=== PATIENT | female | born 1930 | race Caucasian/White ===

== ENCOUNTER 2016-08-30 12:58 | Emergency (ER) | payer OTHER ==
[~2016-08-30] VITALS: Ht 160 cm; Wt 52.0 kg
[~2016-08-30 12:58] MED LIST: ASCO500C4 PO; ASPEC81 PO; ATV5 PO; CHOL100010 PO; CRG25 PO; CTP1 PO; LOSA100T65 PO; LPT20 PO; LSX20 PO; MULT-506 PO; OMEG10007 PO; SPR25 PO; [UNRECOGNIZED DRUG - CODE] PO
[2016-08-30 13:01] VITALS: TEMP 36.3; Ht 160 cm; Wt 52.0 kg
[2016-08-30 13:48] VITALS: O2SAT 97
[2016-08-30 13:58] LABS: HEMATOCRIT 38.5 % (37-47); MEAN CELL VOLUME 87.9 fL (80-100); MEAN CORPUSCULAR HEMOGLOBIN 31.5 pg (25-34); MEAN CORPUSCULAR HGB CONC 35.8 g/dl (32-36); MEAN PLATELET VOLUME 11.1 fL (7.4-10.4); PLATELET COUNT 278 K/uL (130-400); RED BLOOD COUNT 4.38 M/uL (4.2-5.4); WHITE BLOOD COUNT 8.76 K/uL (4.8-10.8)
--- NOTE | 2016-08-30 13:58 | EMERGENCY ROOM VISIT NOTE ---
History Report prepared by Arslan: Calvin Garza Under the Supervision of: Dr. Yvon Christiansen M.D. First contact with patient: 13:35 Chief Complaint: REFERRED BY DOCTOR Stated Complaint: HTN History of Present Illness The patient is a 85 year old female who presents to the Emergency Room with complaints of worsening hypertension that occurred today. Her blood pressure is currently 194/135. She was referred by her face worker to come to the ED. 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 She states that they think was due to her increased blood pressure. It is currently attached, but she is noticing more trouble reading. She also had two cataract surgeries. She denies any abdominal pain, leg pain, fever, chills, diarrhea, melena, hematochezia, or urinary symptoms. She is currently taking Clonidine, Losartan, Catapres, Lipitor, Coreg, and an anxiety medication. She had a prior lumpectomy. She is feeling some heart palpations. Source of History: patient Onset: today Position: other (global) Symptom Intensity: 194/135 Quality: other (hypertension) Timing: worsening Associated Symptoms: No abdominal pain, No chills, No diarrhea, No fevers, No hematochezia, No melena, No urinary symptoms Note: She denies any leg pain. She is experiencing some heart palpitations. Review of Systems All systems have been listed, reviewed, and are negative other than those previously mentioned. Please see Additional Medical History Sheet. Past Medical & Surgical Medical Problems: (1) Allergic rhinitis (2) Breast cancer (3) Carotid bruit (4) CKD (chronic kidney disease), stage III (5) Detached retina (6) Dyslipidemia (7) History of breast cancer (8) History of melanoma (9) Hypertension (10) Hypertensive urgency (11) Osteoporosis Surgical Problems: (1) Status post cataract extraction (2) Status post partial mastectomy of right breast Family History Brain tumor FATHER Pancreatic cancer MOTHER Social History Smoking Status: Never Smoker Alcohol Use: none Marital Status: Housing Status: lives alone Occupation Status: employed Current/Historical Medications Scheduled Ascorbic Acid (Vitamin C Cr), 500 MG PO DAILY Aspirin (Aspirin EC Low Dose), 81 MG PO QAM Atorvastatin (Atorvastatin Calcium), 20 MG PO QPM Calcium Carbonate (Chewable Calcium), 500 MG PO BID Carvedilol (Carvedilol), 25 MG PO BID Cholecalciferol (Vitamin D-1000), 1,000 UNITS PO DAILY Clonidine Hcl (Catapres), 0.5 TAB PO UD Fish Oil ([place]-3), 1 CAP PO BID Furosemide (Furosemide), 20 MG PO QAM Losartan Potassium (Cozaar), 100 MG PO DAILY Multivitamin (Multivitamin), 1 TABLET PO DAILY Spironolactone (Spironolactone), 12.5 MG PO QAM Scheduled PRN Lorazepam (Lorazepam), 0.5 MG PO HS PRN for Anxiety Allergies Coded Allergies: Sulfa Antibiotics (Verified Allergy, Intermediate, rash, 07/14/16) Codeine (Verified Adverse Reaction, Intermediate, N/V, 07/14/16) Physical Exam Vital Signs Date Time Temp Pulse Resp B/P Pulse Ox O2 Delivery O2 Flow Rate FiO2 08/30/16 14:47 63 18 158/97 98 Room Air 08/30/16 14:00 64 16 170/75 98 Room Air 08/30/16 13:48 97 Room Air 08/30/16 13:47 82 19 167/84 98 Room Air 08/30/16 13:30 63 17 169/79 99 Room Air 08/30/16 13:23 66 08/30/16 13:01 36.3 90 18 189/80 90 Room Air Physical Exam GENERAL: Patient awake, alert, oriented x 3. Patient follows commands. Patient does not appear toxic. Patient is adequately hydrated and well- nourished. SKIN: No erythema, pallor, cyanosis or rash HEENT: Normal head, her right pupil is slightly enlarged and irregular, left pupil is constricted but reactive, Funduscopic exam shows in right eye irregular appearing retina consistent with past retinal detachment and surgery. Left pupil constricted with limited visualization of retina. Oral cavity and posterior pharynx appear normal. Neck: Without adenopathy, no neck vein distention. LUNGS: Clear to auscultation. No wheezes, no rales, no rhonchi. HEART: No murmurs. No gallops. No rubs. Irregularly irregular rhythm. ABDOMEN: No masses, no rebound, no hepatomegaly or splenomegaly. EXTREMITIES: No signs of trauma. No pedal or pretibial edema. No calf or thigh tenderness. NEUROLOGIC: Cranial nerves II-XII within normal limits. No gross motor sensory function deficits. Medical Decision & Procedures ER Provider Diagnostic Interpretation: X ray results are stated below per my interpretation and the radiologist's interpretation. CHEST 2 VIEWS ROUTINE CLINICAL HISTORY: Hypertension COMPARISON STUDY: 07/14/2016 FINDINGS: The cardiac and mediastinal contours remain stable. There is no focal pulmonary consolidation. There is a trace right pleural effusion. There is subtle subpleural right lung septal edema. IMPRESSION: 1. No evidence of focal pulmonary consolidation 2. Subtle subpleural right lung septal edema 3. Trace right pleural effusion Electronically signed by: Cyril Duran M.D. 08/30/2016 2:36 PM Dictated Date/Time: 08/30/2016 2:33 PM Laboratory Results 08/30/16 13:30 Test 08/30/16 13:30 Red Blood Count 4.38 M/uL (4.2-5.4) Mean Corpuscular Volume 87.9 fL (80-100) Mean Corpuscular Hemoglobin 31.5 pg (25-34) Mean Corpuscular Hemoglobin Concent 35.8 g/dl (32-36) RDW Standard Deviation 45.9 fL (36.4-46.3) RDW Coefficient of Variation 14.4 % (11.5-14.5) Mean Platelet Volume 11.1 fL (7.4-10.4) Prothrombin Time 11.0 SECONDS (9.0-12.0) Prothromb Time International Ratio 1.0 (0.9-1.1) Activated Partial Thromboplast Time 25.4 SECONDS (21.0-31.0) Partial Thromboplastin Ratio 1.0 Troponin I < 0.015 ng/ml (0-0.045) Laboratory results as stated above per my review. Medications Administered Medications (Trade) Dose Ordered Sig/Galdino Route Start Time Stop Time Status Last Admin Dose Admin Clonidine HCl (Catapres Tab) 0.05 mg NOW ONCE PO 08/30/16 14:00 08/30/16 14:01 DC 08/30/16 14:08 0.05 MG ECG Indication: palpitations Rate (beats per minute): 63 Rhythm: sinus rhythm Findings: ST depression (1, 2, AVF, and V6), no ectopy, other (Left ventricular hypertrophy) ED Course 1335: Past medical records reviewed. The patient was evaluated in room A12. A complete history and physical examination was performed. 1400: Clonidine HCl 0.05 mg PO 1506: I reassessed the patient at this time. She is feeling better. Her blood pressure is now 158/63. 1530: Upon reevaluation, the patient appeared to have improvement of her symptoms. I discussed today's findings with her. She verbalized agreement of the treatment plan. She was discharged home. Medical Decision Nurses notes reviewed. Medical history sheet reviewed. Differential diagnosis includes but is not limited to: Hypertension out of control, metabolic disorder , anxiety, and retinal detachment. The patient's exam is unremarkable. Multiple labs and EKG were performed. Please see above. The patient does have an irregular heartbeat which is chronic. Blood pressure came down with 0.05 mg of clonidine. Patient is to continue her current medications as prescribed. I reassured her. Some of the problem is related to underlying anxiety. Impression Primary Impression: Hypertension Additional Impressions: Anxiety History of retinal detachment Scribe Attestation The scribe's documentation has been prepared under my direction and personally reviewed by me in its entirety. I confirm that the note above accurately reflects all work, treatment, procedures, and medical decision making performed by me. Departure Information Dispostion Home / Self-Care Referrals Lizeth Tariq D.O. (PCP) Forms HOME CARE DOCUMENTATION FORM, IMPORTANT VISIT INFORMATION, WORK / SCHOOL INSTRUCTIONS Patient Instructions My [facility] Additional Instructions Continue all of your current medications as prescribed. Follow-up with your family physician within the next 10 days. Problem Qualifiers Primary Impression: Hypertension Hypertension type: essential hypertension Qualified Codes: I10 - Essential ( primary) hypertension
[2016-08-30] MEDS ORDERED: CLONIDINE HCL 0.1 MG TAB PO ONE (14:00)
[2016-08-30] MEDS ORDERED: CTP/1 PO (14:37)
[2016-08-30] MEDS ORDERED: CHOL100040 PO (14:37)
--- NOTE | 2016-08-30 14:37 | DIAGNOSTIC IMAGING REPORT ---
CHEST 2 VIEWS ROUTINE CLINICAL HISTORY: Hypertension COMPARISON STUDY: 07/14/2016 FINDINGS: The cardiac and mediastinal contours remain stable. There is no focal pulmonary consolidation. There is a trace right pleural effusion. There is subtle subpleural right lung septal edema. IMPRESSION: 1. No evidence of focal pulmonary consolidation 2. Subtle subpleural right lung septal edema 3. Trace right pleural effusion Electronically signed by: Cyril Duran M.D. 08/30/2016 2:36 PM Dictated Date/Time: 08/30/2016 2:33 PM
[2016-08-30 14:47] VITALS: BP 158/97; PULSE 63; O2SAT 98
[2016-10-02] MEDS ORDERED: CALC500C70 PO (13:51)
[2016-10-02] MEDS ORDERED: LORA-741 PO (13:51)
[2016-10-02] MEDS ORDERED: ATOR-54 PO (13:53)
[2016-10-02] MEDS ORDERED: PROB1TAB16 PO (13:55)
[2016-10-02] MEDS ORDERED: FIBER PO (13:55)
[2017-02-24] MEDS ORDERED: CTP1 PO (11:46)
[2017-02-24] MEDS ORDERED: PLN25 PO (11:46)
[2017-02-24] MEDS ORDERED: LSX20 PO (11:47)
== END 2016-08-30 15:15 | disposition home or self-care (01) ==
LOC: C.EDB 12:59 → C.EDA 15:15
DX: I12.9 Hypertensive chronic kidney disease with stage 1 through stage 4 chronic kidney disease, or unspecified chronic kidney disease (principal); F41.9 Anxiety disorder, unspecified; N18.3 Chronic kidney disease, stage 3 (moderate); Z98.890 Other specified postprocedural states; E78.5 Hyperlipidemia, unspecified; Z85.3 Personal history of malignant neoplasm of breast; Z85.820 Personal history of malignant melanoma of skin; Z98.49 Cataract extraction status, unspecified eye; Z90.11 Acquired absence of right breast and nipple; Z88.2 Allergy status to sulfonamides; Z88.5 Allergy status to narcotic agent; Z80.0 Family history of malignant neoplasm of digestive organs

== ENCOUNTER → 2016-10-02 | Outpatient (CLI) | payer OTHER ==
[~2016-10-02] MED LIST changes: +ATOR-54 PO; +CALC500C70 PO; -CHOL100010 PO; +CHOL100040 PO; +CTP/1 PO; +FIBER PO; +LORA-741 PO; +PLN25 PO; +PROB1TAB16 PO
[2016-10-02 13:19] VITALS: BP 155/62; PULSE 62; TEMP 36.8; O2SAT 95
--- NOTE | 2016-10-02 16:03 | Radiation Oncology Follow-Up ---
Radiation Oncology Follow-Up Date of Visit Oct 02, 2016. 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 She has noted no masses or tenderness and no change of the axilla. She is up-to-date on mammography. She had a mammogram 06/24/2016. There is no mammographic evidence of malignancy. A one-year screening mammogram was recommended. As was given a BI-RADS Category 1. She had been on Arimidex and this was discontinued after her recent hospitalization. She was hospitalized for palpitations. She also completed a 24-hour Holter monitor yesterday and is awaiting the results. She continues to have the palpitations. There is no chest pain or pressure associated. Medications have been given and adjusted while hospitalized. Allergies Coded Allergies: Sulfa Antibiotics (Verified Allergy, Intermediate, rash, 07/14/16) Codeine (Verified Adverse Reaction, Intermediate, N/V, 07/14/16) Home Medications Scheduled Ascorbic Acid (Vitamin C Cr), 500 MG PO DAILY Aspirin (Aspirin EC Low Dose), 81 MG PO QAM Atorvastatin (Lipitor), 1 TAB PO HS Calcium/Vitamin D ([place] 500 Plus D), 1 TAB PO BID Carvedilol (Carvedilol), 25 MG PO BID Cholecalciferol (Vitamin D-1000), 1,000 UNITS PO DAILY Clonidine Hcl (Catapres), 0.5 TAB PO UD Fiber Laxative (Fiber Laxative), 1 CAP PO DAILYBB Fish Oil ([place]-3), 1 CAP PO BID Furosemide (Furosemide), 20 MG PO QAM Losartan Potassium (Cozaar), 100 MG PO DAILY Multivitamin (Multivitamin), 1 TABLET PO DAILY Probiotic Product (Probiotic), 1 TAB PO DAILYBL Spironolactone (Spironolactone), 12.5 MG PO QAM Scheduled PRN Lorazepam (Ativan), 0.5 MG PO HS PRN for Insomnia Review of Systems Gastrointestinal: Symptoms: WNL Oral: Symptoms: No Problems Respiratory: Symptoms: SOB With Exertion Urinary: Symptoms: WNL Skin: Symptoms: No Problems Breast: Right Upper Arm Measurement: 23.5 Right Mid Arm Measurement: 18.5 Right Wrist Measurement: 13.8 Left Upper Arm Measurement: 22.5 Left Mid Arm Measurement: 18.7 Left Wrist Measurement: 13.6 Arm Dominence: Right Patient Cosmetic Evaluation: Excellent Staff Cosmetic Evalaluation: Excellent Physical Exam Vital Signs Date Time Temp Pulse Resp B/P Pulse Ox O2 Delivery O2 Flow Rate FiO2 10/02/16 13:19 36.8 62 16 155/62 95 Pain: Side: Bilateral Patient Pain Scale: 0 - 10 Initial Pain Intensity: 0.0 Fatigue: None General Appearance: no apparent distress Eyes: normal inspection, EOMI ENT: normal ENT inspection, hearing grossly normal Neck: no adenopathy, thyroid normal Respiratory/Chest: lungs clear, no respiratory distress, no accessory muscle use Breast: Breast examination reveals absence of nipple on the right. There are no masses or tenderness no axillary adenopathy. Well-healed incisions. There is no telangiectasia. She has no skin retractions. Using the [place] score cosmesis she has a good outcome. The left breast shows no masses or tenderness and no axillary adenopathy. Cardiovascular: regular rate, rhythm, no gallop, no murmur, + extra beats Abdomen: non tender, soft Extremities: no pedal edema Neurologic/Psychiatric: no motor/sensory deficits, alert, normal mood/affect Skin: warm/dry Lymphatic: no adenopathy Laboratory Studies Test 07/09/16 22:20 07/10/16 00:42 07/10/16 06:40 07/14/16 21:40 Total Bilirubin 0.4 mg/dl (0.2-1) 0.5 mg/dl (0.2-1) Direct Bilirubin 0.1 mg/dl (0-0.2) 0.1 mg/dl (0-0.2) Aspartate Amino Transferase (AST) 19 U/L (15-37) 17 U/L (15-37) Alanine Aminotransferase (ALT) 26 U/L (12-78) 20 U/L (12-78) Alkaline Phosphatase 58 U/L (45-117) 60 U/L (45-117) Total Creatine Kinase 53 U/L (26-192) 38 U/L (26-192) Creatine Kinase MB 0.7 ng/ml (0.5-3.6) < 0.5 ng/ml (0.5-3.6) Creatine Kinase MB Ratio 1.3 (0-3.0) (0-3.0) Total Protein 7.3 gm/dl (6.4-8.2) 7.6 gm/dl (6.4-8.2) Albumin 3.6 gm/dl (3.4-5.0) 3.6 gm/dl (3.4-5.0) Lipase 254 U/L (73-393) 337 U/L (73-393) Thyroid Stimulating Hormone (TSH) 4.240 uIu/ml (0.300-4.500) Free Thyroxine 1.21 ng/dl (0.80-1.60) Urine Color YELLOW Urine Appearance CLEAR (CLEAR) Urine pH 7.5 (4.5-7.5) Urine Specific [place] 1.006 (1.000-1.030) Urine Protein NEG (NEG) Urine Glucose (UA) NEG (NEG) Urine Ketones NEG (NEG) Urine Occult Blood NEG (NEG) Urine Nitrite NEG (NEG) Urine Bilirubin NEG (NEG) Urine Urobilinogen NEG (NEG) Urine Leukocyte Esterase NEG (NEG) Triglycerides Level 64 mg/dl (0-150) Cholesterol Level 181 mg/dl (0-200) HDL Cholesterol 70 mg/dl LDL Cholesterol, Calculated 98 mg/dl VLDL Cholesterol, Calculated 13 mg/dl Cholesterol/HDL Ratio 2.6 PTT 25.2 SECONDS (21.0-31.0) Partial Thromboplastin Ratio 1.0 D-Dimer 1700 ug/L FEU (0-500) Magnesium Level 2.1 mg/dl (1.8-2.4) Test 07/15/16 05:10 07/17/16 05:00 08/30/16 13:30 Immature Granulocyte % (Auto) 0.1 % 0.1 % White Blood Count 9.52 K/uL (4.8-10.8) 9.43 K/uL (4.8-10.8) 8.76 K/uL (4.8-10.8) Red Blood Count 4.26 M/uL (4.2-5.4) 4.06 M/uL (4.2-5.4) 4.38 M/uL (4.2-5.4) Hemoglobin 13.6 g/dL (12.0-16.0) 12.9 g/dL (12.0-16.0) 13.8 g/dL (12.0-16.0) Hematocrit 36.3 % (37-47) 35.2 % (37-47) 38.5 % (37-47) Mean Corpuscular Volume 85.2 fL (80-100) 86.7 fL (80-100) 87.9 fL (80-100) Mean Corpuscular Hemoglobin 31.9 pg (25-34) 31.8 pg (25-34) 31.5 pg (25-34) Mean Corpuscular Hemoglobin Concent 37.5 g/dl (32-36) 36.6 g/dl (32-36) 35.8 g/dl (32-36) Platelet Count 289 K/uL (130-400) 277 K/uL (130-400) 278 K/uL (130-400) Mean Platelet Volume 11.1 fL (7.4-10.4) 11.1 fL (7.4-10.4) 11.1 fL (7.4-10.4) Neutrophils (%) (Auto) 51.3 % 54.7 % Lymphocytes (%) (Auto) 32.2 % 32.4 % Monocytes (%) (Auto) 13.2 % 9.2 % Eosinophils (%) (Auto) 2.8 % 3.2 % Basophils (%) (Auto) 0.4 % 0.4 % Neutrophils # (Auto) 4.87 K/uL (1.4-6.5) 5.15 K/uL (1.4-6.5) Lymphocytes # (Auto) 3.07 K/uL (1.2-3.4) 3.06 K/uL (1.2-3.4) Monocytes # (Auto) 1.26 K/uL (0.11-0.59) 0.87 K/uL (0.11-0.59) Eosinophils # (Auto) 0.27 K/uL (0-0.5) 0.30 K/uL (0-0.5) Basophils # (Auto) 0.04 K/uL (0-0.2) 0.04 K/uL (0-0.2) Immature Granulocyte # (Auto) 0.01 K/uL (0.00-0.02) 0.01 K/uL (0.00-0.02) Prothrombin Time 10.7 SECONDS (9.0-12.0) 11.0 SECONDS (9.0-12.0) Prothrombin Time INR 1.0 (0.9-1.1) 1.0 (0.9-1.1) Sodium Level 143 mmol/L (136-145) 143 mmol/L (136-145) Potassium Level 3.5 mmol/L (3.5-5.1) 3.9 mmol/L (3.5-5.1) Chloride Level 105 mmol/L (98-107) 108 mmol/L (98-107) Carbon Dioxide Level 28 mmol/L (21-32) 25 mmol/L (21-32) Anion Gap 10.0 mmol/L (3-11) 10.0 mmol/L (3-11) Blood Urea Nitrogen 18 mg/dl (7-18) 18 mg/dl (7-18) Creatinine 0.91 mg/dl (0.60-1.20) 0.89 mg/dl (0.60-1.20) Est Creatinine Clear Calc Drug Dose 35.1 ml/min 37.2 ml/min Estimated GFR () 67.1 69.0 Estimated GFR (Non- 57.9 59.5 BUN/Creatinine Ratio 20.0 (10-20) 20.4 (10-20) Random Glucose 96 mg/dl (70-99) 88 mg/dl (70-99) Calcium Level 9.0 mg/dl (8.5-10.1) 8.7 mg/dl (8.5-10.1) Troponin I 0.024 ng/ml (0-0.045) < 0.015 ng/ml (0-0.045) RDW Standard Deviation 43.9 fL (36.4-46.3) 45.9 fL (36.4-46.3) RDW Coefficient of Variation 14.0 % (11.5-14.5) 14.4 % (11.5-14.5) Magnesium Level 2.3 mg/dl (1.8-2.4) PTT 25.4 SECONDS (21.0-31.0) Partial Thromboplastin Ratio 1.0 Additional Studies Mammography as reviewed above. Assessment & Plan Plan: Continue annual mammography continue regular follow-up with medical oncology and Dr. Javier. We discussed the studies that she had while hospitalized. 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 She'll be getting the results of her Holter monitor from Dr. Javier. A follow-up appointment with our office was not given. She may call if she has any questions or concerns we' ll be happy to see her. Total Time In Follow-Up I spent 25 minutes speaking to the patient performing examination. I spent 15 minutes reviewing information completing this note. Copy To Sonal Yates CRNP; Scott Javier M.D. Problem Qualifiers (1) Breast cancer: Breast location: central portion of breast Patient sex: female Laterality: right Qualified Codes: C50.111 - Malignant neoplasm of central portion of right female breast
== END | disposition home or self-care (01) ==
LOC: C.ONC 13:06
PROVIDERS: ATTEND Physician Assistant Medical
DX: Z08 Encounter for follow-up examination after completed treatment for malignant neoplasm (principal); Z92.3 Personal history of irradiation; Z85.3 Personal history of malignant neoplasm of breast

== ENCOUNTER 2016-11-18 06:32 | Observation (INO) | payer OTHER ==
[~2016-11-18] VITALS: Ht 160 cm; Wt 51.9 kg
[~2016-11-18 06:32] MED LIST changes: -ATV5 PO; -CTP1 PO; -LPT20 PO; -PLN25 PO; -[UNRECOGNIZED DRUG - CODE] PO
[2016-11-18 07:26] VITALS: BP 170/80; PULSE 80; TEMP 36.5; O2SAT 98
--- NOTE | 2016-11-18 08:21 | History & Physical Bridge Note ---
H&P Re-Evaluation Bridge Note: I have examined the patient, reviewed the History & Physical and in the interval since the performance of the History & Physical I have noted the following changes of clinical significance: No changes noted
--- NOTE | 2016-11-18 08:21 | Procedure Note ---
Pre-Mod Sedation Assessment General Date of Moderate Sedation: Nov 18, 2016. Vital Signs: Vital Signs Past 12 Hours Date Time Temp Pulse Resp B/P Pulse Ox O2 Delivery O2 Flow Rate FiO2 11/18/16 07:26 36.5 80 16 170/80 98 Room Air Review Cardiovascular: regular rate, rhythm, no edema, + extra beats Abdomen: soft Lungs: lungs clear Airway Class: II Pre-Sedation Airway Assessment Oral Cavity: WNL Short Thick Neck: No Hx of Sleep Apnea: No Smoking Status: Never Smoker Mallampati Classification: Class II ASA Classification: Class II Procedure Planning Contraindications-for Mod Sed: None Yes Notes The planned sedation has been discussed with the patient and consent obtained. I have identified the patient, determined the appropriateness of sedation and have assessed the patient immediately prior to the procedure. All medicine(s) and interventions are by my order.
[2016-11-18] MEDS ORDERED: MIDAZOLAM HCL 5 MG/ML 1 ML VIAL ONE (08:34)
[2016-11-18] MEDS ORDERED: FENTANYL CITRATE INJ 50 MCG/1 ML 2 ML VIAL ONE (08:34)
[2016-11-18] MEDS ORDERED: HEPARIN SOD (PORCINE) 1000 UNIT/ML 10 ML VIAL ONE (08:54)
[2016-11-18] MEDS ORDERED: ISOPROTERENOL 200 MCG / 50ML D5W IV ONE ×2 (09:04→10:12)
[2016-11-18] MEDS ORDERED: HEPARIN 25000 UNIT/500 ML D5W ONE (09:31)
[2016-11-18] MEDS ORDERED: LORAZEPAM 0.5 MG TAB PO PRN (11:45)
[2016-11-18] MEDS ORDERED: ACETAMINOPHEN 325 MG TAB PO PRN (11:45)
--- NOTE | 2016-11-18 11:53 | [facility] Post Operative Brief Note ---
Immediate Operative Summary Operative Date Nov 18, 2016. Pre-Operative Diagnosis pvc frequent, nicm Post-Operative Diagnosis nicm Procedure(s) Performed 3d mapping of pvc of rvot and lvot, pvc ablation, eps, isoprel infusion Surgeon stevie morin Bullet Lubricating Machine Operator Surgeon(s) none Estimated Blood Loss <5cc Findings see official report Fluids (cc crystalloids) 500cc Specimens none Drains none Anesthesia 2mg versed and 25mcg fentanyl Complication(s) None Disposition slab puller holding
--- NOTE | 2016-11-18 11:55 | Discharge Instructions ---
Discharge Instructions Date of Service Nov 18, 2016. Admission Reason for Admission: Frequent Pvc's * To Do* Discharge Discharge Diagnosis / Problem: PVC Discharge Goals Goal(s): Improve function Activity Recommendations Activity Limitations: as noted below (no heavy lifting or squating for 1 week) May Resume Sexual Activity: when tolerated Shower/Bathe: tomorrow Driving or Machine Use: resume 1 day after discharge . Instructions / Follow-Up Instructions / Follow-Up ACTIVITY RECOMMENDATIONS: It is common to feel weak and fatigue for a few days. * Do not drive or operate any motorized equipment for the next 1 day. * Limit stair usage (2 or 3 trips a day only) for the next three days. * Do not lift anything heavier than 10 pounds for the next 7 days. * Do not engage in vigorous exercise or any sports for the next five days. * You may shower the day after your procedure, but do not immerse the area for three days. Cleanse the site gently with soap and water. SPECIAL CARE INSTRUCTIONS: * You may replace the pressure dressing or band-aid the morning after the procedure. * After your procedure, it is normal to have a small bruise or small lump at the site. Examine your site daily for any change in the bruise or lump, redness, swelling, drainage or numbness. Notify your doctor if any change. BLEEDING: * If there is a small amount of bleeding at the site, lie down and apply firm pressure with a clean cloth for ten minutes. When the bleeding stops, lie quietly keeping the procedure limb straight for six hours. Notify your doctor as soon as possible. * If the bleeding does not stop after ten minutes or if there is a large amount of bleeding or spurting, call 911 immediately. Continue to lie down and hold firm pressure until help arrives. SKIN IRRITATION: * You may experience some redness and/or swelling in the area where radiation was administered. If any skin irritation occurs, please contact your family physician. FOLLOW UP VISIT: Keep any scheduled doctor appointments. Current Hospital Diet Patient's current hospital diet: Regular Diet Discharge Diet Recommended Diet: AHA Diet (Heart Healthy) Procedures Procedures Performed: 3d mapping of pvc of rvot and lvot, pvc ablation, eps, isoprel infusion Pending Studies Studies pending at discharge: no Medical Emergencies . Who to Call and When: Medical Emergencies: If at any time you feel your situation is an emergency, please call 911 immediately. . Non-Emergent Contact Non-Emergency issues call your: Industrial Robotics Mechanic . . "Provider Documentation" section prepared by Kristina Burgess. VTE Core Measure Inpt VTE Proph given/why not?: Treatment not indicated
--- NOTE | 2016-11-18 11:57 | Procedure Note ---
Post-Mod Sedation Assessment General Date of Moderate Sedation Nov 18, 2016. Vital Signs: Vital Signs Past 12 Hours Date Time Temp Pulse Resp B/P Pulse Ox O2 Delivery O2 Flow Rate FiO2 11/18/16 11:40 Room Air 11/18/16 11:35 Room Air 11/18/16 11:30 78 16 193/89 98 Room Air 11/18/16 07:26 36.5 80 16 170/80 98 Room Air Review - Discharge Criteria Vital Signs Stable: Yes Alert/Oriented/Conversant: Yes Returned to Baseline Mental St: Yes Nausea Absent/Minimal: Yes Pain/Discomfort/Absent/Minimal: Yes Normal/Baseline Respirations: Yes Active Bleeding?: No Pt Received D/C Instructions: N/A Prescriptions Given: None Specific Proced. D/C Criteria Distal Pulses Present (Cardiac: Yes Groin site assessed-Card Cath: Yes Voided Prior To Discharge: Yes Discharged Patients Adult Escort/Transportation: N/A
[2016-11-18] MEDS ORDERED: NURSING VERBAL MED ORDER ONE ×2 (12:00→12:45)
--- NOTE | 2016-11-18 12:01 | Discharge Summary ---
Discharge Summary Date of Service Nov 18, 2016. Discharge Summary Admission Date: 11/18/2016 Discharge Date: Nov 19, 2016 Discharge Disposition: Home Principal Diagnosis: PVCs Secondary Diagnoses/Problems: NICM EF 40-49% HTN Chronic systolic HF, NYHA class II HLD CKD stage III Procedures: EPS, isoprel infusion, 3d mapping of PVCs in RVOT and LVOT, PVC ablation Medication Reconciliation Continued Medications: Ascorbic Acid (Vitamin C Cr) 500 Mg Cap 500 MG PO DAILY Aspirin (Aspirin EC Low Dose) 81 Mg Ectab 81 MG PO QAM, #30 2 Refills Atorvastatin (Lipitor) 20 Mg Tab 1 TAB PO HS for 90 Days, TAB 1 Refill Calcium/Vitamin D (Os-Phan 500 Plus D) Tab 1 TAB PO BID, TAB Carvedilol (Carvedilol) 25 Mg Tab 25 MG PO BID for 30 Days, #60 TAB Cholecalciferol (Vitamin D-1000) 1,000 Unit Tab 1000 UNITS PO DAILY Clonidine Hcl (Catapres) 0.1 Mg Tab 0.5 TAB PO UD, TAB with evening meal Fiber Laxative (Fiber Laxative) Ea 1 CAP PO DAILYBB Fish Oil ([place]-3) 1 Ea Cap 1 CAP PO BID 1000 MG CAPS Furosemide (Furosemide) 20 Mg Tab 20 MG PO QAM for 30 Days, #30 TAB Lorazepam (Ativan) 0.5 Mg Tab 0.5 MG PO HS PRN for Insomnia, TAB Losartan Potassium (Cozaar) 100 Mg Tab 100 MG PO DAILY, TAB Multivitamin (Multivitamin) Tab 1 TABLET PO DAILY Probiotic Product (Probiotic) 1 Tab Tab 1 TAB PO DAILYBL Spironolactone (Spironolactone) 25 Mg Tab 12.5 MG PO QAM for 30 Days, #15 TAB Admission Information Physical Exam (per Admitting): aaox3, nad supple, no jvd nrl s1/s2, +PVCs, no murmur cta b/l no w/r/r soft, nt/nd no edema b/l no focal deficits Hospital Course Pt admitted for elective PVC ablation due to frequent PVCs and declining of her LV EF (NICM). Pt underwent procedure without any complications, monitored overnight and discharged home in stable condition following morning. Total time spent on discharge = This includes examination of the patient, discharge planning, medication reconciliation, and communication with other providers. Discharge Instructions ACTIVITY RECOMMENDATIONS: It is common to feel weak and fatigue for a few days. * Do not drive or operate any motorized equipment for the next 1 da.. * Limit stair usage (2 or 3 trips a day only) for the next three days. * Do not lift anything heavier than 10 pounds for the next three days. * Do not engage in vigorous exercise or any sports for the next five days. * You may shower the day after your procedure, but do not immerse the area for three days. Cleanse the site gently with soap and water. SPECIAL CARE INSTRUCTIONS: * You may replace the pressure dressing or band-aid the morning after the procedure. * After your procedure, it is normal to have a small bruise or small lump at the site. Examine your site daily for any change in the bruise or lump, redness, swelling, drainage or numbness. Notify your doctor if any change. BLEEDING: * If there is a small amount of bleeding at the site, lie down and apply firm pressure with a clean cloth for ten minutes. When the bleeding stops, lie quietly keeping the procedure limb straight for six hours. Notify your doctor as soon as possible. * If the bleeding does not stop after ten minutes or if there is a large amount of bleeding or spurting, call 911 immediately. Continue to lie down and hold firm pressure until help arrives. SKIN IRRITATION: * You may experience some redness and/or swelling in the area where radiation was administered. If any skin irritation occurs, please contact your family physician. FOLLOW UP VISIT: Keep any scheduled doctor appointments.
[2016-11-18] MEDS ORDERED: IV FLUIDS COMPLETED PRN (12:15)
[2016-11-18] MEDS ORDERED: MoRPHine SULFATE 2 MG/ML CARP ONE (12:47)
--- NOTE | 2016-11-18 13:36 | OPERATIVE REPORT ---
DATE OF OPERATION: 11/18/2016 PREOPERATIVE DIAGNOSIS: Premature ventricular contractions, nonischemic cardiomyopathy, ejection fraction 40-49% with further reduction to less than 40% on most recent echo. POSTOPERATIVE DIAGNOSIS: Nonischemic cardiomyopathy, successful premature ventricular contractions ablation from the left ventricular outflow tract. PROCEDURE: Isuprel drug infusion, 3D mapping of PVCs in the RVOT and LVOT, PVC ablation electrophysiology study. SURGEON: Dr. Kristina Burgess. VIDEO MACHINES MECHANIC: None. ANESTHESIA: Monitored and conscious sedation given under my supervision administered by Michael Perry, start time 0843, end time 1130, total of 2 mg of Versed and 25 mcg fentanyl. INTRAVENOUS FLUIDS: 500 mL in addition to heparin bolus. CONDITION: Stable. COMPLICATIONS: None. URINE OUTPUT: Not applicable. SPECIMENS: None. FINDINGS: See below. BLOOD LOSS: Less than 5 mL. INDICATIONS: This is an 85-year-old female with past medical history for hypertension, chronic systolic heart failure, [place] Heart Association class 2, hyperlipidemia, chronic kidney disease stage III, nonischemic cardiomyopathy, ejection fraction back in July was 40-49% but on most recent echo it was declining further in the high 30s and frequent abundant unifocal PVCs. Due to symptomatic PVCs in addition to her worsening cardiomyopathy, she was recommended PVC ablation. CONSENT: Consent was obtained prior to the patient going into the electrophysiology lab. The patient was informed of risks, benefits, alternatives to the procedure. Risks include but not limited to sudden cardiac , cardiac arrhythmias, cerebrovascular accident, myocardial infarction, injury to the blood vessels, chamber of the heart, the valves, bleeding and infection. The patient understood these risks and agreed to the procedure as planned. Informed consent was obtained. DESCRIPTION OF THE PROCEDURE: The patient was brought into the electrophysiology lab in a fasting state. She was connected to continuous clinical research monitor. A timeout was performed to ensure patient's identity and procedure correctly. The patient was prepped and draped over the bilateral groins in normal surgical standard fashion. Monitored conscious sedation was given throughout the procedure for patient's comfort level. [place] precautions were maintained throughout the procedure. Lidocaine 1% 10 mL were given in the right femoral groin. Venous access was obtained using the modified Seldinger technique where a right femoral vein had an 8 Afghan sheath. Initially we were going to try using the PentaRay catheter; however, I was unable due to the anatomy of the heart very erect. I was unable to really pass the PentaRay in up into the right ventricular outflow tract and we were getting a lot of ectopies so we did not use the PentaRay. Also of note, when I gave her her initial dose of monitored sedation her PVCs went away so we started 2 mg of isuprel and she woke up from anesthesia on the isuprel. She did continue to have PVCs. I then went in and mapped the PVCs initially in the RVOT with the [employer] SmartTouch 4 mm ablation catheter ThermoCool in the RVOT region; however, we did not really have any early sites. I then used the modified Seldinger technique and got femoral arterial access in the right femoral artery and I placed an 8 Afghan sheath through that. She was started on IV heparin and got an IV Heparin bolus. We monitored ACTs throughout the duration of the procedure to have therapeutic ACTs greater than 250, which they all were. I mapped the LVOT for the PVCs using the 3D mapping ablation catheter. We mapped them to anterior right below the aortic valve, right underneath the left coronary cusp. We had pace mapping at those sites as well. Initially, the pace map from evon was in the high 80s with lead 1 being the only one that looked not uniform ____ PVC. We were pre-QRS about only 10 milliseconds. We did give a couple of clarke right at that area at 30 cub[place] for minute duration. I then continued to 3D map further the PVC ablation going up further towards the valve right underneath the valve in the right probably near left coronary cusp and got a 99% paced map of her initial PVC with 30 mm pre-QRS and QS on my unipolar. I then gave another 3 radiofrequency clarke at 30 cuba in this region for minute duration. The PVCs seemed to be slightly modify and sensed that the access was all the same but there now was a notching and it was a little bit more delayed upslope so I went a little further up underneath the valves, right underneath probably left coronary cusp and gave 2 more clarke for 60 minutes each. Then, the catheter was removed from the body and during our waiting period I did an EP study using the [employer] quad catheter through the 8-Afghan sheath in the right femoral vein. Initially we placed it over the His bundle. My post-ablation EP study findings are as follows: Sinus cycle length 828 milliseconds, AH 108 milliseconds, HV 48 milliseconds, AV Wenckebach 480 milliseconds. These were all consistent with my pre post-ablation where I had a sinus cycle length of 956, AH of 110 and HV of 52, AV Wenckebach 490. In my post-ablation electrophysiology study, I found AV mono ERP to be 600/350 and 500/390 and the atrial ERP 600/270 and 500/310. The right ventricular ERP post-ablation was 600/270 and 500/250. There were no more PVCs on the monitor. The catheters were removed from the body and the sheaths were pulled with manual compression once her ACT came down using manual compression to establish hemostasis. The patient was brought up into her room. IMPRESSION: 1. Successful premature ventricular contractions ablation originating from right underneath the left coronary cusp of the aortic valve. 2. Normal atrioventricular mono function. PLAN: Monitor patient post ablation overnight. EKG now. Continue her home medications since her blood pressure is on the high side we will give her half a tab of clonidine that she normally takes if her blood pressure is elevated. She will follow up in my office in 1 month's time. She is not to do any heavy lifting or squatting for a week and would most likely repeat echocardiogram in about 3 months' time. I attest to the content of the Intraoperative Record and any orders documented therein. Any exceptio ns are noted below.
[2016-11-18] MEDS ORDERED: ONDANSETRON INJ 2 MG/ML 2 ML VIAL ONE (13:58)
[2016-11-18 15:00] VITALS: BP 162/60; PULSE 61; TEMP 36.4; O2SAT 88; Ht 160 cm; Wt 51.9 kg
[2016-11-18 16:00] VITALS: BP 163/72; PULSE 59; TEMP 36.4; O2SAT 94
[2016-11-18 19:47] VITALS: BP 191/71; PULSE 65; TEMP 36.6; O2SAT 97
[2016-11-18] MEDS: CALCIUM 600MG + VIT D 400 IU TAB PO SCH (20:33)
[2016-11-18] MEDS: CARVEDILOL 25 MG TAB PO SCH (20:33)
[2016-11-18] MEDS ORDERED: ATORVASTATIN 20 MG TAB PO SCH (21:00)
[2016-11-18] MEDS ORDERED: CLONIDINE HCL 0.1 MG TAB PO SCH (21:00)
[2016-11-18 22:56] VITALS: BP 142/52; PULSE 57; TEMP 36.4; O2SAT 97
[2016-11-19 03:52] VITALS: BP 168/52; PULSE 53; TEMP 36.4; O2SAT 97
[2016-11-19 07:27] VITALS: BP 187/49; PULSE 62; TEMP 36.6; O2SAT 96
[2016-11-19] MEDS: CARVEDILOL 25 MG TAB PO SCH (08:14)
[2016-11-19] MEDS: CALCIUM 600MG + VIT D 400 IU TAB PO SCH (08:15)
[2016-11-19] MEDS ORDERED: MULTIVITAMIN TAB PO SCH (09:00)
[2016-11-19] MEDS ORDERED: LOSARTAN POTASSIUM 50 MG TAB PO SCH (09:00)
[2016-11-19] MEDS ORDERED: ASPIRIN 81 MG ECTAB PO SCH (09:00)
[2016-11-19] MEDS ORDERED: SPIRONOLACTONE 25 MG TAB PO SCH (09:00)
[2016-11-19] MEDS ORDERED: FUROSEMIDE 20 MG TAB PO SCH (09:00)
[2016-11-19 09:41] VITALS: BP 187/49; PULSE 62; TEMP 36.6; O2SAT 96
--- NOTE | 2016-11-19 12:40 | Cardiology Follow-Up ---
Subjective Subjective Date of Service: Nov 19, 2016. Pt evaluation today including: conversation w/ patient, physical exam, review of studies Pain: none Problem List Medical Problems: (1) Anxiety Status: Acute (2) EKG abnormality Status: Acute (3) Exertional dyspnea Status: Acute (4) History of retinal detachment Status: Acute (5) HTN (hypertension) Status: Acute (6) Hypokalemia Status: Acute (7) Left sided chest pain Status: Acute (8) Palpitations Status: Acute (9) PVC (premature ventricular contraction) Status: Acute (10) PVC's (premature ventricular contractions) Status: Acute Review of Systems Constitutional: No fatigue, No fever Respiratory: No dyspnea at rest, No shortness of breath Cardiac: No chest pain, No edema, No palpitations Abdomen: No diarrhea, No nausea, No vomiting Endo: + fatigue Objective Vital Signs Last Vital Signs Documentation Date Time Temp Pulse Resp B/P Pulse Ox O2 Delivery O2 Flow Rate FiO2 11/19/16 09:41 36.6 62 22 96 Room Air 11/19/16 07:27 187/49 2.0 Physical Exam: General Appearance: WD/WN, no apparent distress Eyes: bilateral eyes EOMI, bilateral eyes PERRL Neck: supple, no JVD Respiratory/Chest: lungs clear, no respiratory distress Cardiovascular: regular rate, rhythm, no JVD, no murmur, + extra beats Abdomen: non tender (right groin soft no hematoma), soft Neurologic/Psychiatric: no motor/sensory deficits, alert, normal mood/affect, oriented x 3 Skin: warm/dry Assessment and Plan Impression: 1. PVCs orginating from LVOT s/p successful ablation 2. NICM 3. HTN 4. HLD Plan: Ok for discharge home today Continue home medications no heavy lifting for 1 week f/u in my office in 1 month Discharge planning: home Medications: Medications Administered Medications (Trade) Dose Ordered Sig/Galdino Route Start Time Stop Time Status Last Admin Dose Admin Fentanyl Citrate (Fentanyl Inj) 100 mcg STK-MED ONCE .ROUTE 11/18/16 08:34 11/18/16 08:35 DC 11/18/16 08:34 25 MCG Midazolam HCl (Versed Inj) 5 mg STK-MED ONCE .ROUTE 11/18/16 08:34 11/18/16 08:35 DC 11/18/16 08:34 1 MG Heparin Sodium (Porcine) (Heparin Iv Bolus) 10,000 unit STK-MED ONCE .ROUTE 11/18/16 08:54 11/18/16 08:55 DC 11/18/16 08:54 10,000 UNIT Isoproterenol HCl (Isoproterenol / D5W) 200 mcg STK-MED ONCE IV 11/18/16 09:04 11/18/16 09:05 DC 11/18/16 09:04 200 MCG Heparin Sodium/ Dextrose (Heparin 25,000 Unit/500ml D5W) 25,000 unit STK-MED ONCE .ROUTE 11/18/16 09:31 11/18/16 09:32 DC 11/18/16 09:31 25,000 UNIT Isoproterenol HCl (Isoproterenol / D5W) 200 mcg STK-MED ONCE IV 11/18/16 10:12 11/18/16 10:13 DC 11/18/16 10:12 200 MCG Acetaminophen (Tylenol Tab) 650 mg Q4H PRN PO 11/18/16 11:45 11/19/16 11:40 DC 11/18/16 19:06 325 MG Aspirin (Ecotrin Tab) 81 mg QAM PO 11/19/16 09:00 11/19/16 11:40 DC 11/19/16 08:14 81 MG Atorvastatin Calcium (Lipitor Tab) 20 mg HS PO 11/18/16 21:00 11/19/16 11:40 DC 11/18/16 20:33 20 MG Calcium/Vitamin D (Caltrate Plus Tab) 1 tab BID PO 11/18/16 21:00 11/19/16 11:40 DC 11/18/16 20:33 1 TAB Carvedilol (Coreg Tab) 25 mg BID PO 11/18/16 21:00 11/19/16 11:40 DC 11/19/16 08:14 25 MG Furosemide (Lasix Tab) 20 mg QAM PO 11/19/16 09:00 11/19/16 11:40 DC 11/19/16 08:14 20 MG Lorazepam (Ativan Tab) 0.5 mg HS PRN PO 11/18/16 11:45 11/19/16 11:40 DC 11/18/16 21:00 0.5 MG Losartan Potassium (coZAAR TAB) 100 mg DAILY PO 11/19/16 09:00 11/19/16 11:40 DC 11/19/16 08:15 100 MG Multivitamins (Multivitamin Tab) 1 tab DAILY PO 11/19/16 09:00 11/19/16 11:40 DC 11/19/16 08:15 1 TAB Spironolactone (Aldactone Tab) 12.5 mg QAM PO 11/19/16 09:00 11/19/16 11:40 DC 11/19/16 08:15 12.5 MG Clonidine HCl (Catapres Tab) 0.05 mg HS PO 11/18/16 21:00 11/19/16 11:40 DC 11/18/16 20:34 0.05 MG Miscellaneous (Iv Fluids Completed) 1 ea PRN PRN N/A 11/18/16 12:15 11/19/16 11:40 DC 11/18/16 15:54 1 EA Morphine Sulfate (MoRPHine SULFATE INJ) 2 mg STK-MED ONCE .ROUTE 11/18/16 12:47 11/18/16 12:48 DC 11/18/16 12:47 1 MG Ondansetron HCl (Zofran Inj) 4 mg STK-MED ONCE .ROUTE 11/18/16 13:58 11/18/16 13:59 DC 11/18/16 13:58 4 MG Lab Results: Telemetry: SR pt had a few PVCs from midnight to 12:30am otherwise no ectopy ECG:SR Last 24 Hours Test 11/18/16 12:58 11/18/16 13:50 Kaolin Activated Coagulation Time 162 SECONDS 147 SECONDS
[2017-02-24] MEDS ORDERED: PLN25 PO (11:46)
[2017-02-24] MEDS ORDERED: CTP1 PO (11:46)
[2017-02-24] MEDS ORDERED: LSX20 PO (11:47)
== END 2016-11-19 11:30 | disposition home or self-care (01) ==
LOC: C.EP 06:32 → C.2T 11:48
PROVIDERS: ADMIT Internal Medicine; ATTEND Internal Medicine
DX: I49.3 Ventricular premature depolarization (principal); I25.5 Ischemic cardiomyopathy; I13.0 Hypertensive heart and chronic kidney disease with heart failure and stage 1 through stage 4 chronic kidney disease, or unspecified chronic kidney disease; N18.3 Chronic kidney disease, stage 3 (moderate); I50.22 Chronic systolic (congestive) heart failure; E78.5 Hyperlipidemia, unspecified; Z79.82 Long term (current) use of aspirin; Z79.899 Other long term (current) drug therapy; K58.9 Irritable bowel syndrome, unspecified; F41.9 Anxiety disorder, unspecified; H35.9 Unspecified retinal disorder; Z85.3 Personal history of malignant neoplasm of breast

== ENCOUNTER 2017-02-22 17:47 | Inpatient (IN) | payer OTHER ==
[~2017-02-22] VITALS: Ht 162.6 cm; Wt 51.4 kg
--- NOTE | 2017-02-22 18:15 | EMERGENCY ROOM VISIT NOTE ---
History Report prepared by Arslan: Abimael Yang Under the Supervision of: Dr. Scott Coffey M.D. First contact with patient: 17:54 Chief Complaint: CARDIAC ASSESSMENT Stated Complaint: HIGH BP, HEART BEATING STRANGE History of Present Illness The patient is an 86 year old female who presents to the Emergency Room with concerns over some elevated blood pressure readings that she noticed this morning, several hours prior to arrival. The patient states that she has had hypertension for many years, but notes that her pressures were higher than normal this morning. She denies having any specific pain in the chest, but describes a very minimal "discomfort" over the left chest specifically. She rated this discomfort as a 2/10 in severity. She also mentioned having some loose stools and a slight headache today. This diarrhea spontaneously resolved at 1200 today. She denies any vomiting along with the diarrhea, or any fevers. The patient is on several different medications for her high blood pressure. She took her Clonidine and Carvedilol prescriptions earlier than usual today because of her elevated pressures. She did not take any extra dosages of her medications today. The patient mentioned that she had a cardiac ablation somewhat recently, as well as an echocardiogram. The ablation was successful, and the echocardiogram was improved from her previous imaging. She denies any history of a heart attack. The patient is also on Lasix daily. 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 A total of 10 systems reviewed and were otherwise negative. Past Medical & Surgical Medical Problems: (1) Allergic rhinitis (2) Breast cancer (3) Carotid bruit (4) CKD (chronic kidney disease), stage III (5) Detached retina (6) Dyslipidemia (7) History of breast cancer (8) History of melanoma (9) Hypertension (10) Hypertensive urgency (11) Hypertensive urgency (12) Osteoporosis (13) PVC (premature ventricular contraction) Surgical Problems: (1) Status post cataract extraction (2) Status post partial mastectomy of right breast Family History Brain tumor FATHER Pancreatic cancer MOTHER Social History Smoking Status: Never Smoker Alcohol Use: none Marital Status: Housing Status: lives alone Occupation Status: employed Current/Historical Medications Scheduled Ascorbic Acid (Vitamin C Cr), 500 MG PO DAILY Aspirin (Aspirin EC Low Dose), 81 MG PO QAM Atorvastatin (Lipitor), 1 TAB PO HS Calcium/Vitamin D (Os-Phan 500 Plus D), 1 TAB PO BID Carvedilol (Carvedilol), 25 MG PO BID Cholecalciferol (Vitamin D-1000), 1,000 UNITS PO DAILY Clonidine Hcl (Catapres), 0.5 TAB PO UD Fiber Laxative (Fiber Laxative), 1 CAP PO DAILYBB Fish Oil (Clinton-3), 1 CAP PO BID Furosemide (Furosemide), 20 MG PO QAM Losartan Potassium (Cozaar), 100 MG PO DAILY Multivitamin (Multivitamin), 1 TABLET PO DAILY Probiotic Product (Probiotic), 1 TAB PO DAILYBL Spironolactone (Spironolactone), 12.5 MG PO QAM Scheduled PRN Lorazepam (Ativan), 0.5 MG PO HS PRN for Insomnia Allergies Coded Allergies: Sulfa Antibiotics (Verified Allergy, Intermediate, rash, 02/22/17) Codeine (Verified Adverse Reaction, Intermediate, N/V, 02/22/17) Physical Exam Vital Signs Date Time Temp Pulse Resp B/P (MAP) Pulse Ox O2 Delivery O2 Flow Rate FiO2 02/22/17 21:30 76 16 184/77 95 Room Air 02/22/17 21:15 67 16 187/77 95 Room Air 02/22/17 20:44 65 16 192/75 95 Room Air 02/22/17 18:58 62 20 189/82 96 Room Air 02/22/17 18:30 58 02/22/17 17:50 36.6 73 20 199/72 98 Room Air Physical Exam GENERAL: Patient is in no acute distress. HEENT: No acute trauma, normocephalic atraumatic, mucous membranes moist, no nasal congestion, no scleral icterus. NECK: No stridor, no adenopathy, no meningismus, trachea is midline. LUNGS: Clear to auscultation bilaterally, no wheeze, no rhonchi, breath sounds equal. HEART: Without murmurs gallops or rubs, regular rate and rhythm. ABDOMEN: Soft, nontender, bowel sounds positive, no hernias, no peritonitis. EXTREMITIES: No cyanosis or edema, full range of motion of all the joints without pain or difficulty, no signs for acute trauma. NEUROLOGIC: Oriented x 3, no acute motor or sensory deficits, no focal weakness. No pronator drift. SKIN: No rash, no jaundice, no diaphoresis. Medical Decision & Procedures ER Provider Diagnostic Interpretation: Radiology results as stated below per my review and radiologist interpretation: CHEST ONE VIEW PORTABLE CLINICAL HISTORY: Difficult chest pain, arrhythmia. Hypertension. COMPARISON STUDY: 08/22/2016 FINDINGS: The heart is the upper limits of normal in size. There is no failure. There is no focal pulmonary consolidation. There are no significant pleural effusions. There is mild basilar residual thickening, unchanged from the prior study.[ IMPRESSION: No active disease in the chest. Electronically signed by: Cyril Duran M.D. 02/22/2017 7:03 PM Dictated Date/Time: 02/22/2017 7:02 PM Laboratory Results 02/22/17 18:34 02/22/17 18:34 Test 02/22/17 18:34 02/22/17 18:38 02/22/17 18:55 02/22/17 19:55 Red Blood Count 4.06 M/uL (4.2-5.4) Mean Corpuscular Volume 86.2 fL (80-100) Mean Corpuscular Hemoglobin 31.0 pg (25-34) Mean Corpuscular Hemoglobin Concent 36.0 g/dl (32-36) RDW Standard Deviation 43.5 fL (36.4-46.3) RDW Coefficient of Variation 13.8 % (11.5-14.5) Mean Platelet Volume 10.1 fL (7.4-10.4) Anion Gap 6.0 mmol/L (3-11) Est Creatinine Clear Calc Drug Dose 31.0 ml/min Estimated GFR () 53.0 Estimated GFR (Non- 45.7 BUN/Creatinine Ratio 15.1 (10-20) Calcium Level 8.9 mg/dl (8.5-10.1) Thyroid Stimulating Hormone (TSH) 2.120 uIu/ml (0.300-4.500) Activated Partial Thromboplast Time 26.5 SECONDS (21.0-31.0) Partial Thromboplastin Ratio 1.0 Urine Color YELLOW Urine Appearance CLEAR (CLEAR) Urine pH 6.5 (4.5-7.5) Urine Specific Nova 1.009 (1.000-1.030) Urine Protein NEG (NEG) Urine Glucose (UA) NEG (NEG) Urine Ketones NEG (NEG) Urine Occult Blood NEG (NEG) Urine Nitrite NEG (NEG) Urine Bilirubin NEG (NEG) Urine Urobilinogen NEG (NEG) Urine Leukocyte Esterase TRACE (NEG) Urine WBC (Auto) 1-5 /hpf (0-5) Urine RBC (Auto) 0-4 /hpf (0-4) Urine Hyaline Casts (Auto) 0 /lpf (0-5) Urine Epithelial Cells (Auto) 5-10 /lpf (0-5) Urine Bacteria (Auto) NEG (NEG) Urine Osmolality 197 mOms/kg (500-800) Urine Random Sodium 25 mEq/L Test 02/22/17 20:29 Bedside Troponin I < 0.030 ng/ml (0-0.045) Laboratory results reviewed by me. Medications Administered Medications (Trade) Dose Ordered Sig/Galdino Route Start Time Stop Time Status Last Admin Dose Admin Sodium Chloride 500 ml @ 999 mls/hr Q31M STAT IV 02/22/17 19:24 02/22/17 19:54 DC 02/22/17 19:45 999 MLS/HR Acetaminophen (Tylenol Tab) 650 mg NOW STAT PO 02/22/17 19:29 02/22/17 19:32 DC 02/22/17 19:43 650 MG Clonidine HCl (Catapres Tab) 0.05 mg NOW ONCE PO 02/22/17 19:30 02/22/17 19:32 DC 02/22/17 19:44 0.05 MG Hydralazine HCl (HydrALAZINE INJ) 5 mg NOW STAT IV 02/22/17 20:50 02/22/17 20:51 DC 02/22/17 20:59 5 MG Nitroglycerin (Nitroglycerin 2% Oint) 0.5 inch NOW STAT EXT 02/22/17 21:35 02/22/17 22:20 DC 02/22/17 21:42 0.5 INCH ECG Indication: chest pain Rate (beats per minute): 63 Rhythm: normal sinus Findings: nonspecific-ST abn, no acute ischemic change, other (LVH) Comparison ECG Date: 11/18/2016 Change: no significant change Change: REPEAT EKG: Normal Sinus Rhythm at 66 bpm. No ischemia, no ectopy. No change form initial read. ED Course 1754: The patient was evaluated in room B10. A complete history and physical exam was performed. 1923: Ordered Sodium Chloride 500 mL @ 999 mL/hr IV. 1927: I checked on the patient at this time. Her pressure is still elevated. I will order her some Clonidine. 1928: Ordered Tylenol 650 mg PO, Clonidine HCl 0.05 mg PO. 2049: Ordered Hydralazine HCl 5 mg IV. 2052: I checked on the patient at this time. She is feeling okay but her BP is still elevated. 2134: Ordered Nitroglycerin 0.5 inch EXT. 2137: I checked on the patient at this time. She states that her chest discomfort is returning. 2140: I discussed the case with Dr. Callum Arroyo Hospitalist, at this time. He will evaluate the patient for further treatment. 2155: I discussed the option of a stay in the hospital with the patient. She is agreeable to admission. Medical Decision Differential Diagnosis includes; Essential hypertension, anxiety, renal failure , cardiac ischemia, stroke, infection, UTI. There is a mild leukocytosis, this could be consistent with the stress of her presentation or possibly infection although there is no history suggestive of infection. There was no concerning anemia. No renal failure. Sodium was somewhat low in the mid 120s-the patient does not have any history of this type of issue. The patient appeared to be in a euthyroid state. Urinalysis did not show infection. EKG showed a sinus rhythm with LVH, no acute ischemia. Cardiac enzyme testing 2 is not suggestive of acute cardiac injury. Chest x- ray shows no mediastinal winding, pneumonia or pneumothorax. The patient received IV saline, she was given a half of a 0.1 mg clonidine tablet-as per her doctor, she is to take this dose if her blood pressure stays high. She was given oral Tylenol for a headache. She required IV hydralazine for additional blood pressure control. She was eventually given 1/2 inch of Nitropaste. The patient began complaining of increasing left chest pain. A repeat EKG was done showing LVH, no acute ischemic change. No change from the previous EKG. Given the hyponatremia, given the left chest pain and the persistent hypertension, admission/observation was felt warranted. I spoke to the patient and the family service caseworker. The on-call hospitalist was consulted. Medication Reconcilliation Current Medication List: was personally reviewed by me Blood Pressure Screening Patient's blood pressure: Elevated blood pressure Blood pressure disposition: Referred to PCP Consults Time Called: 2135 Consulting Physician: Dr. Callum Arroyo Hospitalist Returned Call: 2140 I discussed the case with Dr. Callum Arroyo Hospitalmarty, at this time. He will evaluate the patient for further treatment. Impression Primary Impression: Left sided chest pain Additional Impressions: Hypertension Hyponatremia Scribe Attestation The scribe's documentation has been prepared under my direction and personally reviewed by me in its entirety. I confirm that the note above accurately reflects all work, treatment, procedures, and medical decision making performed by me. Departure Information Dispostion Being Evaluated By Hospitalist Referrals Lizeth Tariq D.O. (PCP) Patient Instructions My [facility] Problem Qualifiers
[2017-02-22 18:51] LABS: MEAN CELL VOLUME 86.2 fL (80-100); MEAN PLATELET VOLUME 10.1 fL (7.4-10.4); PLATELET COUNT 279 K/uL (130-400); RED BLOOD COUNT 4.06 M/uL (4.2-5.4); WHITE BLOOD COUNT 11.03 K/uL (4.8-10.8)
--- NOTE | 2017-02-22 19:04 | DIAGNOSTIC IMAGING REPORT ---
CHEST ONE VIEW PORTABLE CLINICAL HISTORY: Difficult chest pain, arrhythmia. Hypertension. COMPARISON STUDY: 08/22/2016 FINDINGS: The heart is the upper limits of normal in size. There is no failure. There is no focal pulmonary consolidation. There are no significant pleural effusions. There is mild basilar residual thickening, unchanged from the prior study.[ IMPRESSION: No active disease in the chest. Electronically signed by: Cyril Duran M.D. 02/22/2017 7:03 PM Dictated Date/Time: 02/22/2017 7:02 PM
[2017-02-22 19:10] LABS: BUN/CREATININE RATIO 15.1 (10-20); CALCIUM 8.9 mg/dl (8.5-10.1); CREATININE 1.1 mg/dl (0.60-1.20); POTASSIUM 4.6 mmol/L (3.5-5.1)
[2017-02-22 19:13] LABS: URINE APPEARANCE CLEAR (CLEAR); URINE BILIRUBIN NEG (NEG); URINE COLOR YELLOW; URINE NITRITE NEG (NEG); URINE PH 6.5 (4.5-7.5); URINE SPECIFIC GRAVITY 1.009 (1.000-1.030); UROBILINOGEN NEG (NEG)
[2017-02-22 19:16] LABS: MANUAL MICROSCOPIC REQUIRED? NO; REVIEW REQ? NO
[2017-02-22 19:20] LABS: THYROID STIMULATING HORMONE 2.12 uIu/ml (0.300-4.500)
[2017-02-22] MEDS ORDERED: SODIUM CHLORIDE 0.9% 500ML 500 ML IV STA (19:24)
[2017-02-22] MEDS ORDERED: ACETAMINOPHEN 325 MG TAB PO STA (19:29)
[2017-02-22] MEDS ORDERED: CLONIDINE HCL 0.1 MG TAB PO ONE (19:30)
[2017-02-22] MEDS ORDERED: CLONIDINE HCL 0.1 MG TAB ONE (19:40)
[2017-02-22] MEDS ORDERED: HydrALAZINE HCL 20 MG/ML VIAL IV STA (20:50)
[2017-02-22] MEDS ORDERED: NITROGLYCERIN OINT 2% 1GM PACKET EXT STA (21:35)
[2017-02-22] MEDS ORDERED: HYDROmorphone INJ 0.5 MG/0.5 ML SYR IV PRN (22:30)
[2017-02-22] MEDS ORDERED: TRAMADOL HCL 50 MG TAB PO PRN (22:30)
[2017-02-22] MEDS ORDERED: OPTIRAY 320 IV PRN (22:30)
[2017-02-22] MEDS ORDERED: PROMETHAZINE HCL INJ 12.5 MG in SODIUM CHLORIDE 0.9% 50ML 50 ML IV ONE (22:30)
[2017-02-22] MEDS ORDERED: ONDANSETRON INJ 2 MG/ML 2 ML VIAL IV PRN (22:30)
[2017-02-22] MEDS ORDERED: NITROGLYCERIN 0.4 MG SL PER TAB CHARGE SL PRN (22:30)
[2017-02-22] MEDS ORDERED: PROMETHAZINE HCL INJ 12.5 MG in SODIUM CHLORIDE 0.9% 50ML 50 ML IV PRN (22:30)
[2017-02-22] MEDS ORDERED: LORAZEPAM 2 MG/ML 1 ML VIAL IV PRN (22:30)
--- NOTE | 2017-02-22 22:54 | DIAGNOSTIC IMAGING REPORT ---
CT HEAD WITHOUT CONTRAST (CT) CLINICAL HISTORY: Severe headache HISTORY OF BREAST CANCER COMPARISON STUDY: No previous studies for comparison. TECHNIQUE: Axial CT of the brain is performed from the vertex to the skull base. IV contrast was not administered for this examination. A dose lowering technique was utilized adhering to the principles of ALARA. CT DOSE: FINDINGS: No intra or extra-axial mass lesions are visualized. There is no CT evidence of acute cortical infarction. There is no evidence of midline shift. There is no acute hemorrhage. No calvarial fractures are visualized. There are patchy white matter hypodensities likely on a small vessel basis. 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 There is no evidence of pathologic ventricular dilatation. There is no evidence of acute sinusitis. Postsurgical changes involve the right globe. IMPRESSION: No acute intracranial findings Electronically signed by: Cyril Duran M.D. 02/22/2017 10:52 PM Dictated Date/Time: 02/22/2017 10:51 PM
--- NOTE | 2017-02-22 23:01 | DIAGNOSTIC IMAGING REPORT ---
CT ABD/PELVIS IV CONTRAST ONLY CLINICAL HISTORY: Generalized abdominal pain COMPARISON STUDY: 12/08/2011 TECHNIQUE: Following the IV administration of 93 mL of Optiray-320, CT scan of the abdomen and pelvis was performed from the lung bases to the proximal femurs. Images are reviewed in the axial, sagittal, and coronal planes. IV contrast was administered without complication. A dose lowering technique was utilized adhering to the principles of ALARA. CT DOSE: 777.53 mGy.cm FINDINGS: Lower chest: There is lower lobe bronchial wall thickening with mucous plugging most pronounced in the right lower lobe. There is mild septal edema. There is basilar atelectasis. There are trace pleural effusions Liver: There is mild periportal edema. No focal masses are visualized. Gallbladder: Cholelithiasis Spleen: Normal in size and attenuation. Pancreas: Unremarkable. Adrenal glands: Unremarkable. Kidneys: There are multiple bilateral renal masses which approach water attenuation likely represent cysts. The largest measures 1 cm. Bowel: There are no transition zones to indicate bowel obstruction. There is no evidence of acute appendicitis. There is no acute diverticulitis. Peritoneum: There is trace fluid within the right paracolic gutter. No free air is visualized. Vasculature: The abdominal aorta is normal in course and caliber. Adenopathy: None. Pelvic viscera: The bladder, and pelvic viscera are unremarkable. Skeletal structures: No destructive osseous lesions are seen. IMPRESSION: 1. No evidence of bowel obstruction. No evidence of free air 2. Mild periportal edema, possibly secondary to passive congestion 3. No evidence of acute appendicitis. No evidence of acute diverticulitis 4. Mild basilar septal edema and trace pleural effusions, likely secondary to mild congestive failure/fluid overload 5. Lower lobe bronchial wall thickening and mucous plugging 6. Cholelithiasis 7. Bilateral renal cysts Electronically signed by: Cyril Duran M.D. 02/22/2017 11:00 PM Dictated Date/Time: 02/22/2017 10:54 PM
[2017-02-22 23:07] LABS: MAGNESIUM 1.7 mg/dl (1.8-2.4)
[2017-02-22] MEDS ORDERED: LORAZEPAM 2 MG/ML 1 ML VIAL IV ONE (23:30)
[2017-02-22 23:38] VITALS: BP 183/64; PULSE 65; TEMP 36.4; O2SAT 95; Ht 162.6 cm; Wt 51.4 kg
[2017-02-22] MEDS ORDERED: LORAZEPAM INJ 0.25 MG in SYRINGE 0.125 ML IV PRN (23:45)
[2017-02-23] MEDS ORDERED: LOSARTAN POTASSIUM 50 MG TAB PO ONE (01:00)
[2017-02-23] MEDS ORDERED: MAGNESIUM SULFATE 1GM / D5W 1 GM in PREMIXED IN D5W 100 ML IV ONE (01:00)
--- NOTE | 2017-02-23 02:33 | HISTORY & PHYSICAL EXAMINATION ---
DATE OF ADMISSION: 02/22/2017 PRIMARY CARE DOCTOR: Dr. Tariq CHIEF COMPLAINT: High blood pressure and chest pain. HISTORY OF PRESENT ILLNESS: History obtained from the patient and records. Medical history is significant for chronic systolic heart failure secondary to nonischemic cardiomyopathy with an EF of 45-50% from 2D echo in 2016, severe mitral regurgitation, history PVCs status post ablation, hypertension, PVD, and breast cancer R status post surgery and radiation. November 2016, the patient admitted under the cardiology service for a PVC ablation. Last 2 days, the patient has not been feeling well, lower abdominal discomfort, achy, and stools loose. The patient also noted achy left-sided discomfort. No shortness of breath. Px co of generalized headache sx. SBP 160s yesterday. This morning, the patient's SBP 190s. Compliant with all medications. Denies dietary indiscretion, OTC NSAID intake. At the Emergency Room, initial BP 199/72. Patient was given hydralazine, clonidine. MEDICAL HISTORY: As above. A 2D echo from January 2017 showed EF 45%-50%, grade 2 diastolic dysfunction, severe mitral regurgitation, and left atrial enlargement. SURGERIES: She has had a breast surgery and eye surgery. HOME MEDICATIONS: Include lorazepam, spironolactone, carvedilol, furosemide, losartan, atorvastatin, aspirin, vitamin D, calcium carbonate, multivitamins, and clonidine at bedtime once a day. ALLERGIES: CODEINE, MORPHINE, AND SULFA. FAMILY HISTORY: Brain tumor and pancreatitis. PERSONAL AND SOCIAL HISTORY: Nonsmoker. No chronic intake of alcoholic beverages. Used to work at [employer] REVIEW OF SYSTEMS: As per HPI, all other ROS negative. PHYSICAL EXAMINATION: VITAL SIGNS: Blood pressure was noted to be 199/72, pulse rate 60, RR 16, temperature 36.6, and sats 98% on room air. GENERAL: Noted to be slightly anxious, no respiratory distress. Uncomfortable. Looks younger for stated age. SKIN: Normal color. HEENT: Rivanna palpebral conjunctivae. Dry mucosa. NECK: No JVD. Supple. CHEST: Clear to auscultation. HEART: Regular rate and rhythm. Systolic murmur. ABDOMEN: Some distension. Hypogastric tenderness. EXTREMITIES: No edema. No tenderness NEUROLOGIC: No gross focality. LABS: Hemoglobin was noted to be 13, hematocrit 35, white cells 11, and platelets noted to be 279. Sodium was noted to be 126, potassium 4.6, chloride 92, CO2 of 28, BUN 17, creatinine 1.1, and glucose 134. Chest x-ray showed cardiomegaly, no active disease. EKG, normal sinus rhythm, some ST depression in lateral leads as per my interpretation. CT head no acute pathology CT abdomen/pelvis no colitis ASSESSMENT: 1. Hypertensive urgency secondary to GI illness. erratic control at baseline as per patient 2. Hyponatremia. clinical dehydration 2 to diarrheal illness, rule out Clostridium difficile. 3. chronic systolic HF 2 non-ischemic cardiomyopathy, px on the dry side 4. History of PVCs status post ablation. 5. hx severe mitral regurgitation on recent outpx TTE 6. Breast cancer sp surgery. PLAN: PCU. Facilitate home BP meds. Clonidine twice a day dosing for now. Cardio consult RE HTN control (Dr. Clinton as per px request) careful correction of sodium. appropriate to hold home diuretics for now. stool cdif DVT prophylaxis, Lovenox subQ. Full code. MTDD
[2017-02-23 04:03] VITALS: BP 176/70; PULSE 65; TEMP 37; O2SAT 97
[2017-02-23 06:09] LABS: BASO % 0.3 %; BASO ABS # 0.03 K/uL (0-0.2); COMPLETE YES; EOS % 0.4 %; IG% 0.3 %; LYMPH % 16.1 %; LYMPH ABS # 1.88 K/uL (1.2-3.4); MEAN CELL VOLUME 86.7 fL (80-100); MEAN CORPUSCULAR HEMOGLOBIN 30.8 pg (25-34); MEAN CORPUSCULAR HGB CONC 35.6 g/dl (32-36); MEAN PLATELET VOLUME 10.1 fL (7.4-10.4); MONO % 6.9 %; PLATELET COUNT 269 K/uL (130-400); RED BLOOD COUNT 4.15 M/uL (4.2-5.4); WHITE BLOOD COUNT 11.66 K/uL (4.8-10.8)
[2017-02-23 06:47] LABS: BUN/CREATININE RATIO 14.9 (10-20); CALCIUM 8.6 mg/dl (8.5-10.1); CREATININE 0.79 mg/dl (0.60-1.20); MAGNESIUM 2.1 mg/dl (1.8-2.4)
[2017-02-23 06:54] LABS: POTASSIUM 3.9 mmol/L (3.5-5.1)
[2017-02-23] MEDS: ACETAMINOPHEN 325 MG TAB PO PRN (07:26)
[2017-02-23] MEDS ORDERED: AMLODIPINE BESYLATE 5 MG TAB PO ONE (07:45)
[2017-02-23 08:00] VITALS: BP 188/66; PULSE 66; TEMP 36.3; O2SAT 97
[2017-02-23] MEDS ORDERED: ENOXAPARIN 30 MG/0.3 ML SYR SC SCH (08:00)
[2017-02-23] MEDS ORDERED: FUROSEMIDE 20 MG TAB PO ONE (08:15)
[2017-02-23] MEDS: CLONIDINE HCL 0.1 MG TAB PO SCH ×2 (08:24→20:49)
[2017-02-23] MEDS: MULTIVITAMIN TAB PO SCH (08:25)
[2017-02-23] MEDS: CARVEDILOL 25 MG TAB PO SCH ×2 (08:26→20:50)
[2017-02-23] MEDS: ASPIRIN 81 MG ECTAB PO SCH (08:27)
[2017-02-23] MEDS: ENOXAPARIN 40 MG/0.4 ML SYR SC SCH (08:38)
[2017-02-23] MEDS ORDERED: CLONIDINE HCL 0.1 MG TAB PO SCH ×2 (09:00)
[2017-02-23] MEDS ORDERED: LOSARTAN POTASSIUM 50 MG TAB PO SCH (09:00)
[2017-02-23] MEDS: SODIUM CHLORIDE 0.9% 1000ML 1,000 ML IV SCH ×2 (10:14→20:50)
--- NOTE | 2017-02-23 10:15 | CARDIOLOGY CONSULTATION ---
DATE OF CONSULTATION: 02/23/2017 CONSULTATION REQUESTED BY: Dr. Little. REASON FOR CONSULTATION: Elevated BP with chest discomfort. HISTORY OF PRESENT ILLNESS: Mrs. Weinstein is a very pleasant 86-year-old woman who was previously seen by Aissatou Cristina and Dr. Clinton of our practice. She presented to [facility] late on the evening of 02/22/2017 with a complaint of abdominal discomfort, loose bowel movements and chest discomfort. The patient states that she was in her normal state of health until 2 days prior to presentation. That evening she ate a premade frozen meal from [employer] which she had never done before and she woke up the next morning with abdominal discomfort. She thought that the food just did not agree with her system. That time she had some lower abdominal cramping discomfort and some loose bowel movements. Around the same time the discomfort started she noticed that her blood pressure started to elevate into the 160s and then later into the 190s. The patient took her normal medications; however, her blood pressure remain elevated. Around the same time she developed some slight left chest discomfort, it was underneath her left breast. She describes it as a tightness sensation, and was very similar to her previous presentation for hypertensive urgency. Currently, she is without complaint at rest except for the air conditioning bothering her. Of note, patient has a history of labile hypertension. She was admitted to cardiology service as of July 2016 at which her blood pressure medications were changed. She also underwent PVC ablation for her frequent PVCs in the setting of nonischemic cardiomyopathy. She was previously on felodipine 10 mg daily, however, was discontinued after she had some hypotensive episodes while being started on clonidine at the same time and felodipine was discontinued given the fact there is a calcium-channel brody with potential negative inotrope effects in the setting of nonischemic cardiomyopathy, but otherwise the patient tolerated the medication well. PAST SURGICAL HISTORY: 1. PVC ablation in November 2016. 2. Retina repair. 3. Cataract surgery. 4. Right partial mastectomy. MEDICAL ILLNESSES: 1. Frequent PVCs, status post PVC ablation, successful. 2. Severe mitral regurgitation. 3. Nonischemic cardiomyopathy, EF 40%-45%. 4. Labile hypertension. 5. Osteoporosis. 6. Dyslipidemia. 7. Retinal detachment. FAMILY HISTORY: Noncontributory. SOCIAL HISTORY: The patient denies any alcohol, tobacco or recreational drug use. She is within the last year. She has 2 sons. She currently lives at home by herself. REVIEW OF SYSTEMS: As per HPI, all other review of systems reviewed and negative at this time. ALLERGIES: 1. SULFA. 2. CODEINE. MEDICATIONS AN OUTPATIENT: 1. Clonidine 0.05 mg b.i.d.; however, the patient only taking q.p.m. 2. Spironolactone 12.5 mg daily. 3. Coreg 25 mg b.i.d. 4. Lasix 20 mg daily. 5. Losartan 100 mg daily. 6. Atorvastatin 20 mg daily. 7. Aspirin 81 mg daily. 8. [place]-3 fish oil 2400 mg daily. PHYSICAL EXAMINATION: VITALS: Temperature is 36.3, pulse 66, respiratory rate 12, blood pressure 188/66. GENERAL: Awake, alert, oriented x3 in no acute distress. HEENT: Normocephalic, atraumatic. Pupils equal, round, and reactive to light and accommodation. Extraocular muscles intact. Anicteric sclerae. Moist mucous membranes. NECK: No JVD, no bruit. CARDIOVASCULAR: Regular. Positive S4. Normal S1 and S2. No S3. Soft 3/6 holosystolic ejection murmur greatest at the left sternal border midclavicular line with radiation to the left axilla. No rubs. PULMONARY: Clear to auscultation bilaterally. No rales, rhonchi, or wheezing. ABDOMEN: Bowel sounds x4, soft. No rebound, guarding, tenderness. No organomegaly. EXTREMITIES: No clubbing, cyanosis or edema. +2 pedal pulses bilaterally. SKIN: Warm and dry. TEST RESULTS: A 12-lead EKG performed in the Emergency Department independently reviewed at this time shows normal sinus rhythm at 66 beats per minute, normal axis, normal intervals, LVH pattern with associated repolarization, no significant change compared to previous studies. A 2-D echocardiogram 02/11/2015 was read as compared to last available study, changes were noted mitral regurgitation has progressed from moderate to severe, normal LV chamber size, normal wall thickness, mildly reduced LV systolic function with mild global hypokinesis, EF 45%-50%, grade 2 diastolic dysfunction, severe mitral regurgitation and severe left atrial enlargement. IMPRESSION: 1. Uncontrolled hypertension. 2. Difficult to control hypertension. 3. Chest discomfort secondary to uncontrolled hypertension. 4. Mild nonischemic cardiomyopathy, improving, ejection fraction 45%-50%. 5. Severe mitral regurgitation. 6. History of frequent PVCs, status post ablation successful with reduction of 20% burden, less than 1% burden. RECOMMENDATIONS: It was my pleasure to see Mrs. Weinstein in consultation today. I believe her chest discomfort is easily attributed to her uncontrolled hypertension for which she has had previous bouts in the past. So given her severe mitral regurgitation, I believe the most prudent course of action at this point will be to maintain stable blood pressures, obviously this has been difficult in the past. She was previously on felodipine 10 mg daily when at the same time the clonidine was initiated. So at this time, I will start her on felodipine 2.5 mg daily for improved blood pressure control which is absolutely necessary in the setting of severe mitral regurgitation. At the same time she will be continued on her outpatient doses of losartan, Coreg, her spironolactone was held due to hyponatremia, I will also give her a liter of normal saline at this point, repeat lab work later this afternoon. She was previously taking her clonidine only in the p.m., but she will give it b.i.d. at this time as previously directed by Dr. Clinton. There is no need to repeat an echocardiogram at this point. In terms of her severe mitral regurgitation, this topic was briefly discussed with the patient and possible treatments were discussed and she states in no way would she want surgery for it. Further recommendations will be made on followup as an outpatient. Thank you very much for allowing me to participate in the care of your patient. ADDENDUM: F/u bp at 1000 was well controlled, hold off on felodipine for now but can add if necessary. MTDD
--- NOTE | 2017-02-23 11:04 | Progress Note ---
Subjective Date of Service: Feb 23, 2017. Subjective Pt evaluation today including: conversation w/ patient, physical exam, lab review, review of studies, review of inpatient medication list Saw/examined the patient in room 206 She states that last evening she developed some chest pressure/abdominal pain - BP was checked at that time and it was elevated into the 190s Presented to the ER and her SBP was >200 Currently, feeling fine -- states anxiety may have played a part Problem List Medical Problems: (1) Anxiety Status: Acute (2) EKG abnormality Status: Acute (3) Exertional dyspnea Status: Acute (4) History of retinal detachment Status: Acute (5) HTN (hypertension) Status: Acute (6) Hypertension Status: Chronic (7) Hypokalemia Status: Acute (8) Hyponatremia Status: Acute (9) Left sided chest pain Status: Acute (10) Left sided chest pain Status: Acute (11) Palpitations Status: Acute (12) PVC (premature ventricular contraction) Status: Acute (13) PVC's (premature ventricular contractions) Status: Acute Review of Systems Constitutional: No fever, No chills Respiratory: No wheezing, No shortness of breath, No dyspnea on exertion Cardiac: + chest pain (improved) Abdomen: + pain, + diarrhea, No nausea, No vomiting, No constipation, No GI bleeding Musculoskeletal: No joint pain Female : No dysuria, No urinary frequency Heme: No abnormal bleeding/bruising Medications Current Inpatient Medications Medications (Trade) Dose Ordered Sig/Galdino Route Start Time Stop Time Status Last Admin Dose Admin Promethazine HCl 12.5 mg/Sodium Chloride 50.5 ml @ 204 mls/hr Q6H PRN IV 02/22/17 22:30 03/24/17 22:29 Ioversol (Optiray 320) 100 ml UD PRN IV 02/22/17 22:30 02/26/17 22:29 Acetaminophen (Tylenol Tab) 650 mg Q4H PRN PO 02/22/17 22:30 03/24/17 22:29 02/23/17 07:26 650 MG Nitroglycerin (Nitrostat Tab) 0.4 mg UD PRN SL 02/22/17 22:30 03/24/17 22:29 Lorazepam (Ativan Inj) 0.25 mg Q4H PRN IV 02/22/17 22:30 03/24/17 22:29 Ondansetron HCl (Zofran Inj) 4 mg Q6H PRN IV 02/22/17 22:30 03/24/17 22:29 02/22/17 23:39 4 MG Aspirin (Ecotrin Tab) 81 mg QAM PO 02/23/17 09:00 03/25/17 08:59 02/23/17 08:27 81 MG Atorvastatin Calcium (Lipitor Tab) 20 mg HS PO 02/23/17 21:00 03/25/17 20:59 Carvedilol (Coreg Tab) 25 mg BID PO 02/23/17 09:00 03/25/17 08:59 02/23/17 08:26 25 MG Multivitamins (Multivitamin Tab) 1 tab DAILY PO 02/23/17 09:00 03/25/17 08:59 02/23/17 08:25 1 TAB Lactobacillus Acidophilus (Floranex Tab) 4 tab DAILYBL PO 02/23/17 11:00 03/25/17 10:59 Tramadol HCl (Ultram Tab) not relieved ... Q6H PRN PO 02/22/17 22:30 03/24/17 22:29 Hydromorphone HCl (Dilaudid Inj) 0.5 mg Q3H PRN IV 02/22/17 22:30 03/08/17 22:29 Lorazepam 0.25 mg/ Syringe 0.25 ml @ 1 mls/min Q4H PRN IV 02/22/17 23:45 03/24/17 23:44 Losartan Potassium (coZAAR TAB) 100 mg DAILY PO 02/24/17 09:00 03/25/17 08:59 Clonidine HCl (Catapres Tab) 0.05 mg BID PO 02/23/17 09:00 03/25/17 08:59 02/23/17 08:24 0.05 MG Enoxaparin Sodium (Lovenox Inj) 40 mg Q24H SC 02/23/17 09:00 03/25/17 08:59 02/23/17 08:38 40 MG Sodium Chloride 1,000 ml @ 100 mls/hr Q10H IV 02/23/17 09:30 03/25/17 09:29 02/23/17 10:14 100 MLS/HR Objective Vital Signs Date Time Temp Pulse Resp B/P (MAP) Pulse Ox O2 Delivery O2 Flow Rate FiO2 02/23/17 08:00 36.3 66 18 188/66 (106) 97 Room Air 02/23/17 08:00 Room Air 02/23/17 04:03 37.0 65 17 176/70 (105) 97 Room Air 02/23/17 04:00 Room Air 02/22/17 23:38 36.4 65 18 183/64 95 Room Air 02/22/17 22:06 63 16 190/71 95 Room Air 02/22/17 21:30 76 16 184/77 95 Room Air 02/22/17 21:15 67 16 187/77 95 Room Air 02/22/17 20:44 65 16 192/75 95 Room Air 02/22/17 18:58 62 20 189/82 96 Room Air 02/22/17 18:30 58 02/22/17 17:50 36.6 73 20 199/72 98 Room Air Physical Exam General Appearance: no apparent distress Respiratory/Chest: lungs clear, normal breath sounds, no respiratory distress, no accessory muscle use Cardiovascular: regular rate, rhythm, no edema, no murmur Abdomen: normal bowel sounds, non tender, soft Extremities: normal inspection, no pedal edema Neurologic/Psychiatric: no motor/sensory deficits, alert, normal mood/affect Laboratory Results Last 24 Hours Test 02/22/17 18:34 02/22/17 18:38 02/22/17 18:40 02/22/17 18:55 White Blood Count 11.03 K/uL Red Blood Count 4.06 M/uL Hemoglobin 12.6 g/dL Hematocrit 35.0 % Mean Corpuscular Volume 86.2 fL Mean Corpuscular Hemoglobin 31.0 pg Mean Corpuscular Hemoglobin Concent 36.0 g/dl RDW Standard Deviation 43.5 fL RDW Coefficient of Variation 13.8 % Platelet Count 279 K/uL Mean Platelet Volume 10.1 fL Sodium Level 126 mmol/L Potassium Level 4.6 mmol/L Chloride Level 92 mmol/L Carbon Dioxide Level 28 mmol/L Anion Gap 6.0 mmol/L Blood Urea Nitrogen 17 mg/dl Creatinine 1.10 mg/dl Est Creatinine Clear Calc Drug Dose 31.0 ml/min Estimated GFR () 53.0 Estimated GFR (Non- 45.7 BUN/Creatinine Ratio 15.1 Random Glucose 134 mg/dl Calcium Level 8.9 mg/dl Thyroid Stimulating Hormone (TSH) 2.120 uIu/ml Activated Partial Thromboplast Time 26.5 SECONDS Partial Thromboplastin Ratio 1.0 Bedside Troponin I < 0.030 ng/ml Urine Color YELLOW Urine Appearance CLEAR Urine pH 6.5 Urine Specific [place] 1.009 Urine Protein NEG Urine Glucose (UA) NEG Urine Ketones NEG Urine Occult Blood NEG Urine Nitrite NEG Urine Bilirubin NEG Urine Urobilinogen NEG Urine Leukocyte Esterase TRACE Urine WBC (Auto) 1-5 /hpf Urine RBC (Auto) 0-4 /hpf Urine Hyaline Casts (Auto) 0 /lpf Urine Epithelial Cells (Auto) 5-10 /lpf Urine Bacteria (Auto) NEG Test 02/22/17 19:55 02/22/17 20:29 02/22/17 22:25 02/23/17 05:47 Urine Osmolality 197 mOms/kg Urine Random Sodium 25 mEq/L Bedside Troponin I < 0.030 ng/ml Sodium Level 130 mmol/L 128 mmol/L Osmolality 258 mOsm/kg Magnesium Level 1.7 mg/dl 2.1 mg/dl Total Bilirubin 0.8 mg/dl Direct Bilirubin 0.2 mg/dl Aspartate Amino Transf (AST/SGOT) 34 U/L Alanine Aminotransferase (ALT/SGPT) 34 U/L Alkaline Phosphatase 51 U/L Total Protein 6.2 gm/dl Albumin 3.2 gm/dl Lipase 176 U/L White Blood Count 11.66 K/uL Red Blood Count 4.15 M/uL Hemoglobin 12.8 g/dL Hematocrit 36.0 % Mean Corpuscular Volume 86.7 fL Mean Corpuscular Hemoglobin 30.8 pg Mean Corpuscular Hemoglobin Concent 35.6 g/dl Platelet Count 269 K/uL Mean Platelet Volume 10.1 fL Neutrophils (%) (Auto) 76.0 % Lymphocytes (%) (Auto) 16.1 % Monocytes (%) (Auto) 6.9 % Eosinophils (%) (Auto) 0.4 % Basophils (%) (Auto) 0.3 % Neutrophils # (Auto) 8.85 K/uL Lymphocytes # (Auto) 1.88 K/uL Monocytes # (Auto) 0.81 K/uL Eosinophils # (Auto) 0.05 K/uL Basophils # (Auto) 0.03 K/uL RDW Standard Deviation 44.0 fL RDW Coefficient of Variation 13.9 % Immature Granulocyte % (Auto) 0.3 % Immature Granulocyte # (Auto) 0.04 K/uL Potassium Level 3.9 mmol/L Chloride Level 96 mmol/L Carbon Dioxide Level 24 mmol/L Anion Gap 8.0 mmol/L Blood Urea Nitrogen 12 mg/dl Creatinine 0.79 mg/dl Est Creatinine Clear Calc Drug Dose 43.1 ml/min Estimated GFR () 79.1 Estimated GFR (Non- 68.3 BUN/Creatinine Ratio 14.9 Random Glucose 97 mg/dl Calcium Level 8.6 mg/dl Troponin I 0.067 ng/ml Assessment and Plan This is an 86 year old female with a PMH of nonischemic cardiomyopathy with systolic CHF, severe mitral regurgitation, uncontrolled HTN, anxiety, PVCs s/p ablation, CKD stage 3, anxiety, who lives alone at home presents with uncontrolled BP and chest pressure Uncontrolled HTN Chest Pain in the setting of Hypertensive Urgency 02/23 difficult to control BP in the outpatient setting appreciate cardiology input added felodipine as per cardiology continue Cozaar and Coreg trend enzymes recent echo - improved EF; no need to repeat Hyponatremia 02/23 Na on the lower end difficult to tell about fluid status low Urine and serum osm suggests too much fluid given one dose of 20mg of Lasix appreciate cardiology input - given some sodium chloride to bring up sodium levels recheck BMP later in the afternoon Nonischemic Cardiomyopathy Systolic CHF and Valvular Heart Disease appreciate cardio input severe mitral regurgitation EF improved to 40-45% on recent outpatient echo will need to improve BP as outpatient Anxiety Ativan PRN - may need an SSRI DVT ppx Lovenox FULL CODE
[2017-02-23 11:07] VITALS: BP 177/51; PULSE 54; TEMP 36.8; O2SAT 97
[2017-02-23] MEDS: LACTOBACILLUS ACIDOPHILUS (FLORANEX) TAB PO SCH (12:27)
[2017-02-23] MEDS ORDERED: HydrALAZINE 10 MG TAB PO ONE (13:00)
[2017-02-23 14:31] LABS: BUN/CREATININE RATIO 8.9 (10-20); CALCIUM 8.7 mg/dl (8.5-10.1); CREATININE 1.4 mg/dl (0.60-1.20); POTASSIUM 3.5 mmol/L (3.5-5.1)
[2017-02-23 15:26] VITALS: BP 177/69; PULSE 63; TEMP 36.4; O2SAT 97
[2017-02-23] MEDS ORDERED: FELODIPINE 2.5 MG TABCR PO ONE (16:30)
[2017-02-23 19:19] VITALS: BP 153/61; PULSE 63; TEMP 36.7; O2SAT 94
[2017-02-23] MEDS ORDERED: ATORVASTATIN 20 MG TAB PO SCH (21:00)
[2017-02-23 23:52] VITALS: BP 132/52; PULSE 58; TEMP 36.6; O2SAT 96
[2017-02-24] MEDS: ACETAMINOPHEN 325 MG TAB PO PRN ×2 (00:25→08:10)
[2017-02-24 03:23] VITALS: BP 134/53; PULSE 58; TEMP 36.4; O2SAT 96
[2017-02-24] MEDS: SODIUM CHLORIDE 0.9% 1000ML 1,000 ML IV SCH (05:56)
[2017-02-24 06:12] LABS: HEMATOCRIT 31.7 % (37-47); MEAN CELL VOLUME 87.3 fL (80-100); MEAN CORPUSCULAR HGB CONC 36.6 g/dl (32-36); MEAN PLATELET VOLUME 10.1 fL (7.4-10.4); PLATELET COUNT 242 K/uL (130-400); RED BLOOD COUNT 3.63 M/uL (4.2-5.4); WHITE BLOOD COUNT 8.39 K/uL (4.8-10.8)
[2017-02-24 07:00] LABS: BUN/CREATININE RATIO 14.3 (10-20); CALCIUM 7.8 mg/dl (8.5-10.1); CREATININE 0.91 mg/dl (0.60-1.20); POTASSIUM 3.6 mmol/L (3.5-5.1)
[2017-02-24 07:21] VITALS: BP 186/61; PULSE 53; TEMP 36.7; O2SAT 98
[2017-02-24] MEDS: MULTIVITAMIN TAB PO SCH (08:06)
[2017-02-24] MEDS: ASPIRIN 81 MG ECTAB PO SCH (08:06)
[2017-02-24] MEDS: CARVEDILOL 25 MG TAB PO SCH (08:06)
[2017-02-24] MEDS: ENOXAPARIN 40 MG/0.4 ML SYR SC SCH (08:08)
[2017-02-24] MEDS: CLONIDINE HCL 0.1 MG TAB PO SCH (08:08)
[2017-02-24] MEDS ORDERED: SPIRONOLACTONE 25 MG TAB PO SCH (09:00)
[2017-02-24] MEDS ORDERED: FELODIPINE 2.5 MG TABCR PO SCH (09:00)
[2017-02-24] MEDS ORDERED: LOSARTAN POTASSIUM 50 MG TAB PO SCH (09:00)
[2017-02-24 09:31] VITALS: BP 113/60
[2017-02-24] MEDS: LACTOBACILLUS ACIDOPHILUS (FLORANEX) TAB PO SCH (11:01)
--- NOTE | 2017-02-24 11:08 | Cardiology Follow-Up ---
Subjective Subjective Date of Service: Feb 24, 2017. Pt evaluation today including: conversation w/ patient, physical exam, chart review, lab review, review of studies, review of inpatient medication list Additional Details: Pt seen and examined, states that she feels well today. Abdominal discomfort resolved. BP now well controlled. Denies cp, sob, palpitations, lightheadedness or dizziness. Tele reviewed: sinus rhythm with rare PVC's. No sustained arrhythmias. Problem List Medical Problems: (1) Anxiety Status: Acute (2) EKG abnormality Status: Acute (3) Exertional dyspnea Status: Acute (4) History of retinal detachment Status: Acute (5) HTN (hypertension) Status: Acute (6) Hypertension Status: Chronic (7) Hypokalemia Status: Acute (8) Hyponatremia Status: Acute (9) Left sided chest pain Status: Acute (10) Left sided chest pain Status: Acute (11) Palpitations Status: Acute (12) PVC (premature ventricular contraction) Status: Acute (13) PVC's (premature ventricular contractions) Status: Acute Review of Systems Constitutional: No fever, No chills Respiratory: No see HPI, No cough, No sputum, No wheezing, No shortness of breath, No dyspnea on exertion, No dyspnea at rest, No hemoptysis, No problem reported Cardiac: + chest pain (improved), No see HPI, No orthopnea, No PND, No edema, No claudication, No palpitations, No problem reported Abdomen: + pain, + diarrhea, No nausea, No vomiting, No constipation, No GI bleeding Musculoskeletal: No joint pain Female : No dysuria, No urinary frequency Heme: No abnormal bleeding/bruising Endo: + fatigue Objective Vital Signs Last Vital Signs Documentation Date Time Temp Pulse Resp B/P (MAP) Pulse Ox O2 Delivery O2 Flow Rate FiO2 02/24/17 09:31 113/60 (77) 02/24/17 08:00 Room Air 02/24/17 07:21 36.7 53 18 98 Physical Exam: General Appearance: WD/WN, no apparent distress Eyes: bilateral eyes normal inspection, bilateral eyes PERRL, bilateral eyes EOMI ENT: normal ENT inspection, hearing grossly normal, pharynx normal Neck: supple, no adenopathy, thyroid normal, no JVD, no carotid bruits, trachea midline Respiratory/Chest: chest non-tender, lungs clear, normal breath sounds, no respiratory distress, no accessory muscle use Cardiovascular: regular rate, rhythm, no edema, no JVD, no murmur, + gallop/S4 Abdomen: normal bowel sounds, non tender, soft, no organomegaly, no pulsatile mass Extremities: normal inspection, no pedal edema, no calf tenderness Neurologic/Psychiatric: it application support analyst II-XII nml as tested, no motor/sensory deficits, alert, normal mood/affect, oriented x 3 Skin: normal color, warm/dry, no rash Lymphatic: no adenopathy Assessment and Plan 1. Hypertensive urgency resolved will d/c home on current regimen: felodiopine 2.5mg daily (will need script for 30 day supply) clonidine 0.1mg 1/2 tablet bid (will need 30 day supply) along with previous meds (do not need scripts) losartan 100mg daily coreg 25mg po bid spironolactone 12.5mg daily lasix will also be changed to prn only my office will call to schedule follow up with me in 2 weeks patient to keep daily bp log at home as well ok to d/c to home
[2017-02-24 11:32] VITALS: BP 143/55; PULSE 55; TEMP 36.5; O2SAT 96
[2017-02-24] MEDS ORDERED: PLN25 PO (11:46)
[2017-02-24] MEDS ORDERED: CTP1 PO (11:46)
[2017-02-24] MEDS ORDERED: LSX20 PO (11:47)
--- NOTE | 2017-02-24 11:58 | Discharge Instructions ---
Discharge Instructions Date of Service Feb 24, 2017. Admission Reason for Admission: Hypertensive Urgency, Hyponatremia Discharge Discharge Diagnosis / Problem: HYPERTENSIVE URGENCY Discharge Goals Goal(s): Improve disease control, Diagnostic testing, Therapeutic intervention Activity Recommendations Activity Limitations: resume your previous activity . Instructions / Follow-Up Instructions / Follow-Up HOSPITAL FOLLOW UP 02/27/2017 1:00 PM Chirag Murphy MD Family Practice [facility] NEW MEDICATIONS felodipine 2.5mg daily clonidine 0.1mg 1/2 tablet bid CONTINUE PREVIOUS MEDS losartan 100mg daily coreg 25mg po bid spironolactone 12.5mg daily Lasix will changed to prn only for lower extremity swelling PLEASE KEEP DAILY LOG OF BLOOD PRESSURE AND BRING WITH NEXT PHYSICIAN VISIT CARDIOLOGY FOLLOW UP IN 2 WEEKS , OFFICE WILL CALL WITH APPOINTMENT Current Hospital Diet Patient's current hospital diet: AHA Diet (Heart Healthy) Discharge Diet Recommended Diet: AHA Diet (Heart Healthy) Pending Studies Studies pending at discharge: no Medical Emergencies . Who to Call and When: Medical Emergencies: If at any time you feel your situation is an emergency, please call 911 immediately. . Non-Emergent Contact Non-Emergency issues call your: Primary Care Provider . . "Provider Documentation" section prepared by Estefani Garcia. . VTE Core Measure Inpt VTE Proph given/why not?: Unfractionated heparin SQ
--- NOTE | 2017-02-24 12:03 | Progress Note ---
Internal Med Progress Note Date of Service: Feb 24, 2017. Provider Documentation: SUBJECTIVE: feels absolutely fine today no complain of SOB or chest heaviness BP better controlled evaluated by Cardiology today stable to be discharged home OBJECTIVE: Vital Signs-as noted below Exam: General-no sign of distress Eyes-sclera non icteric ENT-NAd Neck-no JVD Lungs-CTA Heart-regular S1/S2, no lower ext edema Abdomen-soft, non tender Extremities-no rash or deformity Neuro-AAO x3, no focal deficit Lab data as noted below. ASSESSMENT & PLAN: Uncontrolled HTN Chest Pain in the setting of Hypertensive Urgency BP better controlled after adjustment of meds appreciate cardiology input discharge medication list : New medications : felodipine 2.5mg daily clonidine 0.1mg 1/2 tablet bid Cont previous meds losartan 100mg daily coreg 25mg po bid spironolactone 12.5mg daily lasix will also be changed to prn only patient to keep daily bp log at home Hyponatremia possible due to Lasix resolved Lasix home dose changed to daily PRN for lower ext swelling /edema Nonischemic Cardiomyopathy Systolic CHF and Valvular Heart Disease appreciate cardio input severe mitral regurgitation EF improved to 40-45% on recent outpatient echo Anxiety Ativan PRN - may need an SSRI will defer to out pt primary care physician DVT ppx Lovenox FULL CODE DISPOSITION stable to be discharged home today Vital Signs: Date Time Temp Pulse Resp B/P (MAP) Pulse Ox O2 Delivery O2 Flow Rate FiO2 02/24/17 11:32 36.5 55 18 143/55 (84) 96 Room Air 02/24/17 09:31 113/60 (77) 02/24/17 08:00 Room Air 02/24/17 07:21 36.7 53 18 186/61 (102) 98 Room Air 02/24/17 04:00 Room Air 02/24/17 03:23 36.4 58 16 134/53 (80) 96 Room Air 02/24/17 00:00 Room Air 02/23/17 23:52 36.6 58 17 132/52 (78) 96 Room Air 02/23/17 20:00 Room Air 02/23/17 19:19 36.7 63 20 153/61 (91) 94 Room Air 02/23/17 16:00 Room Air 02/23/17 15:26 36.4 63 18 177/69 (105) 97 Room Air Lab Results: Results Past 24 Hours Test 02/23/17 13:57 02/24/17 05:28 Range/Units Sodium Level 130 136 136-145 mmol/L Potassium Level 3.5 3.6 3.5-5.1 mmol/L Chloride Level 95 105 98-107 mmol/L Carbon Dioxide Level 27 25 21-32 mmol/L Anion Gap 8.0 6.0 3-11 mmol/L Blood Urea Nitrogen 13 13 7-18 mg/dl Creatinine 1.40 0.91 0.60-1.20 mg/dl Est Creatinine Clear Calc Drug Dose 24.3 36.7 ml/min Estimated GFR () 39.6 66.7 Estimated GFR (Non- 34.2 57.5 BUN/Creatinine Ratio 8.9 14.3 10-20 Random Glucose 127 82 70-99 mg/dl Calcium Level 8.7 7.8 8.5-10.1 mg/dl White Blood Count 8.39 4.8-10.8 K/uL Red Blood Count 3.63 4.2-5.4 M/uL Hemoglobin 11.6 12.0-16.0 g/dL Hematocrit 31.7 37-47 % Mean Corpuscular Volume 87.3 80-100 fL Mean Corpuscular Hemoglobin 32.0 25-34 pg Mean Corpuscular Hemoglobin Concent 36.6 32-36 g/dl RDW Standard Deviation 44.6 36.4-46.3 fL RDW Coefficient of Variation 13.9 11.5-14.5 % Platelet Count 242 130-400 K/uL Mean Platelet Volume 10.1 7.4-10.4 fL
--- NOTE | 2017-02-24 12:07 | Discharge Summary ---
Discharge Summary Date of Service Feb 24, 2017. Discharge Summary Admission Date: Feb 22, 2017 at 21:54 Discharge Date: Feb 24, 2017 Discharge Disposition: Home Principal Diagnosis: HYPERTENSIVE URGENCY Procedures: CHEST XRAY ; no active disease CT HEAD: No acute intracranial finding CT ABDOMEN/PELVIS : IMPRESSION: 1. No evidence of bowel obstruction. No evidence of free air 2. Mild periportal edema, possibly secondary to passive congestion 3. No evidence of acute appendicitis. No evidence of acute diverticulitis 4. Mild basilar septal edema and trace pleural effusions, likely secondary to mild congestive failure/fluid overload 5. Lower lobe bronchial wall thickening and mucous plugging 6. Cholelithiasis 7. Bilateral renal cysts Consultations: [facility] Medication Reconciliation New Medications: Clonidine HCl (Clonidine HCl) 0.1 Mg Tab 0.05 MG PO BID for 30 Days, #30 TAB Felodipine (Felodipine ER) 2.5 Mg Tabcr 2.5 MG PO QAM for 30 Days, #30 TABS Changed Medications: Furosemide (Furosemide) 20 Mg Tab 20 MG PO QAM PRN for leg swelling for 30 Days, #30 TAB (Medication details modified) Continued Medications: Ascorbic Acid (Vitamin C Cr) 500 Mg Cap 500 MG PO DAILY Aspirin (Aspirin EC Low Dose) 81 Mg Ectab 81 MG PO QAM, #30 2 Refills Atorvastatin (Lipitor) 20 Mg Tab 1 TAB PO HS for 90 Days, TAB 1 Refill Calcium/Vitamin D (Os-Phan 500 Plus D) Tab 1 TAB PO BID, TAB Carvedilol (Carvedilol) 25 Mg Tab 25 MG PO BID for 30 Days, #60 TAB Cholecalciferol (Vitamin D-1000) 1,000 Unit Tab 1000 UNITS PO DAILY Fiber Laxative (Fiber Laxative) Ea 1 CAP PO DAILYBB Fish Oil ([place]-3) 1 Ea Cap 1 CAP PO BID 1000 MG CAPS Lorazepam (Ativan) 0.5 Mg Tab 0.5 MG PO HS PRN for Insomnia, TAB Losartan Potassium (Cozaar) 100 Mg Tab 100 MG PO DAILY, TAB Multivitamin (Multivitamin) Tab 1 TABLET PO DAILY Probiotic Product (Probiotic) 1 Tab Tab 1 TAB PO DAILYBL Spironolactone (Spironolactone) 25 Mg Tab 12.5 MG PO QAM for 30 Days, #15 TAB Discontinued Medications: Clonidine Hcl (Catapres) 0.1 Mg Tab 0.5 TAB PO UD, TAB with evening meal Admission Information HPI (per Admitting provider): DATE OF ADMISSION: 02/22/2017 PRIMARY CARE DOCTOR: Dr. Tariq CHIEF COMPLAINT: High blood pressure and chest pain. HISTORY OF PRESENT ILLNESS: History obtained from the patient and records. Medical history is significant for chronic systolic heart failure secondary to nonischemic cardiomyopathy with an EF of 45-50% from 2D echo in 2017, severe mitral regurgitation, history PVCs status post ablation, hypertension, PVD, and breast cancer R status post surgery and radiation. November 2016, the patient admitted under the cardiology service for a PVC ablation. Last 2 days, the patient has not been feeling well, lower abdominal discomfort, achy, and stools loose. The patient also noted achy left-sided discomfort. No shortness of breath. Px co of generalized headache sx. SBP 160s yesterday. This morning, the patient's SBP 190s. Compliant with all medications. Denies dietary indiscretion, OTC NSAID intake. At the Emergency Room, initial BP 199/72. Patient was given hydralazine, clonidine. MEDICAL HISTORY: As above. A 2D echo from January 2017 showed EF 45%-50%, grade 2 diastolic dysfunction, severe mitral regurgitation, and left atrial enlargement. SURGERIES: She has had a breast surgery and eye surgery. HOME MEDICATIONS: Include lorazepam, spironolactone, carvedilol, furosemide, losartan, atorvastatin, aspirin, vitamin D, calcium carbonate, multivitamins, and clonidine at bedtime once a day. ALLERGIES: CODEINE, MORPHINE, AND SULFA. FAMILY HISTORY: Brain tumor and pancreatitis. PERSONAL AND SOCIAL HISTORY: Nonsmoker. No chronic intake of alcoholic beverages. Used to work at [employer]. REVIEW OF SYSTEMS: As per HPI, all other ROS negative. Physical Exam (per Admitting): PHYSICAL EXAMINATION: VITAL SIGNS: Blood pressure was noted to be 199/72, pulse rate 60, RR 16, temperature 36.6, and sats 98% on room air. GENERAL: Noted to be slightly anxious, no respiratory distress. Uncomfortable. Looks younger for stated age. SKIN: Normal color. HEENT: [place] palpebral conjunctivae. Dry mucosa. NECK: No JVD. Supple. CHEST: Clear to auscultation. HEART: Regular rate and rhythm. Systolic murmur. ABDOMEN: Some distension. Hypogastric tenderness. EXTREMITIES: No edema. No tenderness NEUROLOGIC: No gross focality. Hospital Course Uncontrolled HTN Chest Pain in the setting of Hypertensive Urgency BP better controlled after adjustment of meds appreciate cardiology input discharge medication list : New medications : felodipine 2.5mg daily clonidine 0.1mg 1/2 tablet bid Cont previous meds losartan 100mg daily coreg 25mg po bid spironolactone 12.5mg daily lasix will also be changed to prn only patient to keep daily bp log at home Hyponatremia possible due to Lasix resolved Lasix home dose changed to daily PRN for lower ext swelling /edema Nonischemic Cardiomyopathy Systolic CHF and Valvular Heart Disease appreciate cardio input severe mitral regurgitation EF improved to 40-45% on recent outpatient echo Anxiety Ativan PRN - may need an SSRI will defer to out pt primary care physician DVT ppx Lovenox FULL CODE DISPOSITION stable to be discharged home today Total time spent on discharge = 35 MINS This includes examination of the patient, discharge planning, medication reconciliation, and communication with other providers. Discharge Instructions Discharge Instructions Date of Service Feb 24, 2017. Admission Reason for Admission: Hypertensive Urgency, Hyponatremia Discharge Discharge Diagnosis / Problem: HYPERTENSIVE URGENCY Discharge Goals Goal(s): Improve disease control, Diagnostic testing, Therapeutic intervention Activity Recommendations Activity Limitations: resume your previous activity . Instructions / Follow-Up Instructions / Follow-Up HOSPITAL FOLLOW UP 02/27/2017 1:00 PM Chirag Murphy MD Family Practice [facility] NEW MEDICATIONS felodipine 2.5mg daily clonidine 0.1mg 1/2 tablet bid CONTINUE PREVIOUS MEDS losartan 100mg daily coreg 25mg po bid spironolactone 12.5mg daily Lasix will changed to prn only for lower extremity swelling PLEASE KEEP DAILY LOG OF BLOOD PRESSURE AND BRING WITH NEXT PHYSICIAN VISIT CARDIOLOGY FOLLOW UP IN 2 WEEKS , OFFICE WILL CALL WITH APPOINTMENT Current Hospital Diet Patient's current hospital diet: AHA Diet (Heart Healthy) Discharge Diet Recommended Diet: AHA Diet (Heart Healthy) Pending Studies Studies pending at discharge: no Medical Emergencies . Who to Call and When: Medical Emergencies: If at any time you feel your situation is an emergency, please call 911 immediately. . Non-Emergent Contact Non-Emergency issues call your: Primary Care Provider . . "Provider Documentation" section prepared by Estefani Garcia. . VTE Core Measure Inpt VTE Proph given/why not?: Unfractionated heparin SQ Additional Copies To Chirag Murphy M.D., Regan Herbert D.O.
[2017-02-24 13:08] VITALS: BP 143/55; PULSE 55; TEMP 36.5; O2SAT 96
== END 2017-02-24 13:00 | disposition home or self-care (01) | DRG 305 ==
LOC: C.EDB 17:48 → C.2E 21:54 → ENRESERV 22:10 → C.2T 02-23 10:50
PROVIDERS: ADMIT Family Medicine; ATTEND Hospitalist
DX: I16.0 Hypertensive urgency (principal); E87.1 Hypo-osmolality and hyponatremia; I50.22 Chronic systolic (congestive) heart failure; N18.3 Chronic kidney disease, stage 3 (moderate); E78.5 Hyperlipidemia, unspecified; M81.0 Age-related osteoporosis without current pathological fracture; Z79.82 Long term (current) use of aspirin; Z85.3 Personal history of malignant neoplasm of breast

== ENCOUNTER → 2017-06-30 | Outpatient (CLI) | payer OTHER ==
[~2017-06-30] MED LIST changes: -CTP/1 PO; +CTP1 PO; +PLN25 PO
--- NOTE | 2017-07-01 13:44 | MAMMOGRAPHY REPORT ---
BILATERAL DIGITAL SCREENING MAMMOGRAM TOMOSYNTHESIS WITH CAD: 06/30/2017 CLINICAL HISTORY: Asymptomatic. Personal history of breast cancer. TECHNIQUE: Breast tomosynthesis in addition to standard 2D mammography was performed. Current study was also evaluated with a Computer Aided Detection (CAD) system. COMPARISON: Comparison is made to exams dated: 06/24/2016 mammogram, 06/22/2015 mammogram, 4 mammogram, 06/01/2014 mammogram, 05/30/2013 mammogram, and 05/24/2012 mammogram - [facility]. BREAST COMPOSITION: There are scattered areas of fibroglandular density in both breasts. FINDINGS: There are stable postsurgical changes in the right breast, with dystrophic calcification ne ar the surgical site in the posterior retroareolar breast. There are mild vascular calcifications bi laterally. No new suspicious mass, architectural distortion or cluster of microcalcifications is see n. IMPRESSION: ACR BI-RADS CATEGORY 1: NEGATIVE There is no mammographic evidence of malignancy. A 1 year screening mammogram is recommended. The pa tient will receive written notification of the results. Approximately 10% of breast cancers are not detected with mammography. A negative mammographic report should not delay biopsy if a clinically suggestive mass is present. Reba Branch M.D. ay/:06/30/2017 16:51:06 Wind Up Worker: Autumn LR)(M), [facility] letter sent: Normal 1/2 BI-RADS Code: ACR BI-RADS Category 1: Negative
== END | disposition home or self-care (01) ==
LOC: C.MAMM 11:28
PROVIDERS: ATTEND Family Medicine
DX: Z12.31 Encounter for screening mammogram for malignant neoplasm of breast (principal); Z85.3 Personal history of malignant neoplasm of breast

== ENCOUNTER 2019-06-02 09:40 | Inpatient (IN) ==
[2019-06-02] MEDS ORDERED: ALBUT/IPRATROP 3MG/0.5MG NEB 3 ML VIAL INH STA (10:26)
[2019-06-02] MEDS ORDERED: BENZONATATE 100 MG CAPSULE PO ONE (10:26)
[2019-06-02] MEDS ORDERED: SODIUM CHLORIDE 0.9% 1000ML 1,000 ML IV ONE (10:30)
[2019-06-02 10:46] LABS: Basophils # (auto) 0.01 K/uL (0-0.2); Basophils % (auto) 0.1 %; Eosinophils # (auto) 0.03 K/uL (0-0.5); Eosinophils % (auto) 0.3 %; Hematocrit (blood only) 31.3 % (37-47); Hemoglobin 11.1 g/dL (12.0-16.0); Immature Granulocytes # (auto) 0.02 K/uL (0.00-0.02); Immature Granulocytes % (auto) 0.2 %; Lymphocytes # (auto) 1.12 K/uL (1.2-3.4); Lymphocytes % (auto) 10.5 %; Mean Corpuscular Hemoglobin 30.7 pg (25-34); Mean Corpuscular Hgb Conc 35.5 g/dL (32-36); Mean Corpuscular Volume 86.5 fL (80-100); Mean Platelet Volume 10.2 fL (7.4-10.4); Monocytes # (auto) 0.69 K/uL (0.11-0.59); Monocytes % (auto) 6.5 %; Neutrophils # (auto) 8.81 K/uL (1.4-6.5); Neutrophils % (auto) 82.4 %; Platelet Count 255 K/uL (130-400); RDW Coefficient of Variation 14.5 % (11.5-14.5); RDW Standard Deviation 45.5 fL (36.4-46.3); Red Blood Count 3.62 M/uL (4.2-5.4); White Blood Count 10.68 K/uL (4.8-10.8)
[2019-06-02 10:57] LABS: Alanine Aminotransferase 26 U/L (12-78); Albumin Level 3.4 gm/dl (3.4-5.0); Aspartate Aminotransferase 23 U/L (15-37); BUN Creatinine Ratio 18.5 (10-20); Blood Urea Nitrogen 20 mg/dl (7-18); Calcium 8.6 mg/dl (8.5-10.1); Carbon Dioxide 23 mmol/L (21-32); Chloride 95 mmol/L (98-107); Est GFR (African American) 52.9; Est GFR (Non-African American) 45.6; Glucose 141 mg/dl (70-99); Potassium 4.6 mmol/L (3.5-5.1); Sodium 126 mmol/L (136-145)
[2019-06-02 11:01] LABS: Alkaline Phosphatase 57 U/L (45-117); Bilirubin,Total 0.5 mg/dl (0.2-1); Globulin 3.5 gm/dl (2.5-4.0); Total Protein 6.9 gm/dl (6.4-8.2); Troponin I < 0.015 ng/ml (0-0.045)
[2019-06-02] MEDS ORDERED: IOVERSOL 100ml IV PRN (11:25)
--- NOTE | 2019-06-02 11:49 | CT Scan Report ---
CT OF THE CHEST WITH IV CONTRAST CLINICAL HISTORY: cough, history of breast cancer, abnormal sternal films. COMPARISON STUDY: Chest CT July 15, 2016. Chest radiograph February 22, 2017. TECHNIQUE: Following IV administration of 95 mL of Optiray-320, helical axial images of the chest we re obtained. Sagittal and coronal reconstructions were viewed as well as maximal intensity projectio ns on an independent 3-D workstation. Automated exposure control was utilized for the study. A dose lowering technique was utilized adhering to the principles of ALARA. CT DOSE: 214.91 mGy.cm FINDINGS: No enlarged thoracic lymph nodes are present. The heart is moderately enlarged. There is n o pericardial effusion. Moderate coronary artery calcification is noted. No pneumothorax or pleural e ffusion is noted. There are are nodular and tree-in-bud opacities within the right upper lobe. These include an 8 mm right upper lobe nodule on image 128 of 346. There is no lobar consolidation. A few l eft renal cysts are noted. There is a hepatic cyst. Calcified granulomas within the lungs are noted. There are calcified thoracic lymph nodes. No thoracic aortic dissection is present. No sternal abnorm ality is identified. IMPRESSION: 1. Mild multifocal airspace opacities within the right upper lobe with tree-in-bud nodules. The findi ngs suggest a mild infectious process. A follow-up chest CT in 3 months to ensure resolution is recom mended. 2. Moderate cardiomegaly and coronary artery calcification. Electronically signed by: Marciano Ku M.D. 06/02/2019 11:47 AM
[2019-06-02] MEDS ORDERED: cefTRIAXone SODIUM 1,000 MG/50 ML BAG IV STA (11:53)
--- NOTE | 2019-06-02 12:53 | History & Physical Report ---
Date of Service June 02, 2019 Assessment & Plan (1) Pneumonia: Pt is 88 y/o F with PMH HTN, dyslipidemia, right breast CA S/P lumpectomy and radiation, nonischemic cardiomyopathy, chronic systolic CHF, CKD III, anxiety, renal artery stenosis, carotid artery disease presented to ER with co mplaint of cough x 2-3 weeks. Cough productive yellow. Chills In ER afebrile, Vitals stable. No leukocytosis. Negative influenza swab CT CHEST: Mild multifocal airspace opacities within the right upper lobe with tree-in-bud nodules. The findings suggest a mild infectious process. Moderate cardiomegaly and coronary artery calcification. -In ER given 1L NSS, Rocephin, albuterol neb -Pending blood culture -Sputum culture -Pending procalcitonin -Legionella serum and urine -Rocephin, Doxycycline -CBC, BMP in am (2) Acute hyponatremia: Corrected sodium 127 for glucose 141. Baseline Na: 136 -Urine Na, Serum osmolality, urine osmolality -Hold spironolactone -Gentle IVF -Repeat BMP this evening to monitor (3) Hypertension: -Continue amlodipine, losartan, carvedilol -Hold spironolactone (4) Nonischemic cardiomyopathy: Echo 2017: EF: 45-50%, grade II diastolic dysfunction, severe mitral regurgitation, severe left atrial enlargement -Hold spironolactone as above -Appears euvolemic (5) CKD (chronic kidney disease), stage III: Cr: 1.0. Baseline 1.1-1.2 -Monitor renal functions -Avoid nephrotoxic agents when possible (6) Dyslipidemia: -Continue statin (7) Anxiety: -Continue Ativan prn DVT Prophylaxis -Heparin SQ Full Code as per discussion with pt Follows with Dr Doherty for routine care Pt was seen and care coordinated with Dr Hammond. See addendum History of Present Illness Chief Complaint: Cough Primary Care Provider: Lizeth Tariq DO Pt is 88 y/o F with PMH HTN, dyslipidemia, right breast CA S/P lumpectomy and radiation, nonischemic cardiomyopathy, chronic systolic CHF, CKD III, anxiety, renal artery stenosis, carotid artery disease presented to ER with complaint of cough. Patient reports has had cough and congestion for the past 2 to 3 weeks. Seen a PCP last week and had CXR on 05/26/2019 which did not show any consolidation. Patient reports cough feels worse and is productive of yellow/brown sputum. This week has been having chills and had sweats couple days ago. Did not take her temperature at home. States feels slightly short of breath. Yesterday was seen in urgent care and was started on doxycycline and prednisone patient took first dose this morning. Reports yesterday vomited mucus once after coughing. Reports some upper abdominal and lower chest discomfort after coughing only. States this morning was not feeling well overall and felt a little lightheaded and presented to ER. Did have flu vaccine in 04/2019. Denies ill contacts. Denies diarrhea, JEWELL, syncope, vision changes, neck pain, other CP, orthopnea, palpitations, hemoptysis, sore throat, choking, otalgia, other abdominal pain, paresthesias, extremity weakness, extremity edema, rashes, urinary symptoms. Allergies Allergy/AdvReac Type Severity Reaction Status Date / Time Sulfa (Sulfonamide Allergy Intermediate rash Verified 06/02/19 11:53 Antibiotics) codeine AdvReac Intermediate N/V Verified 06/02/19 11:53 Home Medications Home Medications Medication Instructions Recorded Confirmed Type L.acidoph-L.rhamn-B.bif-B.long 1 tab PO QAM 06/02/19 06/02/19 History [Probiotic Acidophilus Biobeads] amlodipine 2.5 mg PO HS 06/02/19 06/02/19 History amlodipine 5 mg PO DAILY@1200 06/02/19 06/02/19 History aspirin 81 mg PO QAM 06/02/19 06/02/19 History atorvastatin 40 mg PO HS 06/02/19 06/02/19 History calcium carbonate [Calcium 500] 500 mg PO QAM 06/02/19 06/02/19 History carvedilol 25 mg PO BID 06/02/19 06/02/19 History cholecalciferol (vitamin D3) 1,000 unit PO QAM 06/02/19 06/02/19 History [Vitamin D3] doxycycline hyclate 100 mg PO BID 06/02/19 06/02/19 History lorazepam 0.5 mg PO HS 06/02/19 06/02/19 History losartan 50 mg PO BID 06/02/19 06/02/19 History methylcellulose (laxative) 500 mg PO Q2D 06/02/19 06/02/19 History multivitamin [Multiple Vitamins] 1 tab PO QAM 06/02/19 06/02/19 History omega 0-aon-lgl-fish oil [[place]-3] 1 cap PO BID 06/02/19 06/02/19 History prednisolone acetate 1 drp OPR DAILY PRN 06/02/19 06/02/19 History prednisone 40 mg PO QAM 06/02/19 06/02/19 History spironolactone 12.5 mg PO QAM 06/02/19 06/02/19 History vit C,L-Pz-lnivl-lutein-zeaxan 1 tab PO BID 06/02/19 06/02/19 History [PreserVision AREDS-2] Past Med/Surg History Medical History Anxiety (Chronic) Carotid artery disease (Chronic) Nonischemic cardiomyopathy (Chronic) Renal artery stenosis (Chronic) Breast cancer (Resolved 05/16/11) "Right breast discomfort and abnormal findings on mammography Status post core needle biopsy revealing 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 05/16/2011 Status post lumpectomy and sentinel lymph node biopsy 06/03/2011 Stage pT1b [id number] Status post completion of radiation therapy utilizing accelerated partial breast treatment completed 08/20/2011 received 3850 cGy" History of breast cancer (Chronic) Hypertension (Chronic) Carotid bruit (Chronic) History of melanoma (Chronic) Osteoporosis (Chronic) Dyslipidemia (Chronic) CKD (chronic kidney disease), stage III (Chronic) Detached retina (Chronic) Allergic rhinitis (Chronic) PVC (premature ventricular contraction) (Chronic) Asthma HX: breast cancer Hypertension Surgical History Status post cataract extraction (Chronic) Status post partial mastectomy of right breast (Chronic) Family History Other Cancer Social History Preferred Language: Nam[place]ian Feels Safe at Home: Yes Smoking Status: Never smoker Hx Alcohol Use: No Hx Substance Use: No Review of Systems Review of Systems: All systems reviewed & are unremarkable except as noted in HPI & below Physical Exam Physical Exam: General: no distress, WDWN Head: normocephalic, atraumatic Eyes: PERRL, EOM's intact, conjunctiva non-injected, anicteric ENT: normal inspection external ears, nose, mucous membranes moist Neck: supple, trachea midline Lungs: clear, no respiratory distress, no wheezing/rhonchi/rales CV: RRR, systolic murmur, no pretibial edema Abd: normal BS, soft, non-tender Ext: no cyanosis, no calf tenderness Neuro: A&O x 3, no focal deficits noted, normal affect Skin: warm, dry Results & Data Vital Signs (Past 12 Hours) Vital Signs Temp Pulse Pulse Resp BP BP Pulse Ox 06/02/19 12:30 63 14 153/51 H 92 06/02/19 12:00 58 L 13 157/55 H 94 06/02/19 11:37 60 20 141/76 H 94 06/02/19 11:00 59 L 12 157/55 H 93 06/02/19 10:45 62 18 99 06/02/19 10:39 61 18 94 06/02/19 10:35 60 20 147/55 H 94 06/02/19 10:00 58 L 18 138/67 95 06/02/19 09:48 36.5 C 63 20 156/57 H 97 Laboratory Results Short CBC 06/02/19 Range/Units 09:56 WBC 10.68 (4.8-10.8) K/uL Hgb 11.1 L (12.0-16.0) g/dL Hct 31.3 L (37-47) % Plt Count 255 (130-400) K/uL BMP 06/02/19 09:56 Sodium 126 L Potassium 4.6 Chloride 95 L Carbon Dioxide 23 BUN 20 H Creatinine 1.09 Glucose 141 H Calcium 8.6 Cardiac Enzymes 06/02/19 Range/Units 09:56 Troponin I < 0.015 (0-0.045) ng/ml Liver Function 06/02/19 Range/Units 09:56 Total Bilirubin 0.5 (0.2-1) mg/dl AST 23 (15-37) U/L ALT 26 (12-78) U/L Alkaline Phosphatase 57 (45-117) U/L Albumin 3.4 (3.4-5.0) gm/dl Diagnostic Findings CT CHEST: IMPRESSION: 1. Mild multifocal airspace opacities within the right upper lobe with tree-in-bud nodules. The findings suggest a mild infectious process. A follow-up chest CT in 3 months to ensure resolution is recommended. 2. Moderate cardiomegaly and coronary artery calcification. ECG Rate (beats per minute): 60 Rhythm: normal sinus Code Status & VTE Plan VTE Prophylaxis Plan VTE Prophylaxis will be ordered: Yes Supervising Physician Co-Signing Physician Notes I, Dr. Shaquille Hammond, have seen and examined the patient with physician dam tender assistant and agree with the assessment and plan as above and would like to comment that Based on review of outpatient notes and patient interview, Ariella Weinstein is a 88 yo female presents with cough/muscular discomfort x 2 to 3 weeks and [facility] for which patient was started on prescription of Doxycycline and prednisone However, patient presents to the emergency room on 06/02/19 at [facility] because she continued to have expectorated sputum and malaise. Patient also reports poor oral intake, loose stools, and medications include spironolactone diuretic. Labs were remarkable for HYPONATREMIA with serum sodium of 126. Patient does not appear to be fluid loaded but patient does have moderate cardiomegaly and coronary artery calcification on presentation CT scan. CT scan findings more pertinent for Mild multifocal airspace opacities within the right upper lobe with tree-in-bud nodules On physical exam General: no acute distress HEENT: some coughing, extraoccular movements intact Lungs: breathing on room air, auscultation of bilateral lung lee with symmetric air sounds Heart: regular rate Abdomen: soft, nontender, positive bowel sounds Extremities: no edema In regards to PNEUMONIA and HYPONATREMIA -will expand antibiotic coverage to ceftriaxone and doxycycline for community acquired pneumonia -send, ERS, CRP, procalcitonin, send sputum cultures. Blood cultures already sent in the ED -screening for legionella as this can possibly be a culprit for hyponatremia -will send serum osmolality and urine electrolyte studies -but more likely reason for hyponatremia may be from poor oral intake, diuretic use, loose stools -will hold off further Spironolactone -start IV fluids as normal saline 60 cc/hr and trend the serum sodium to avoid excessively fast correction. Serum sodium should not rise more than 8 mEq per L in 24 hours Agree with other assessment and plans of health issues as documented by physician dam tender assistant including Hypertension, Chronic Kidney Disease Stage III and Nonischemic cardiomyopathy My hospitalist colleague Dr. Rosa Quezada will be following the patient as hospitalist starting on 06/03/19 (1) Pneumonia Laterality: unspecified laterality Lung location: unspecified part of lung Pneumonia type: due to unspecified organism Qualified Code(s): J18.9 - Pneu monia, unspecified organism
[2019-06-02] MEDS ORDERED: ONDANSETRON INJ 2 MG/ML 2 ML VIAL IV PRN (14:36)
--- NOTE | 2019-06-02 15:01 | Emergency Department Note ---
Entered by Wander Rodas acting as a scribe for History of Present Illness General Chief complaint: Cough Stated complaint: pneumonia/cough Time Seen by Provider: 06/02/19 10:16 Source: patient History of Present Illness Provider complaint: cough Onset (ago): week(s) 1 Location: chest Radiation: non-radiation Pain Consistency: + intermittent Relieved By: + none Associated symptoms: + denies other symptoms, + cough and + fever/chills The patient is an 88 y/o female who presents to the emergency department for evaluation of intermittent cough that began a week ago. The patient states that she had a chest x-ray last week which did not show evidence of pneumonia but possible signs of COPD. She notes she was to have a CT scan done 2 days ago but was not feeling well enough to go. The patient reports that yesterday she was not feeling well and went to [facility] and the PA believed she had pneumonia in the right lobe. She notes that the cough she has goes between a dry cough and a cough with a brown phlegm production. The patient reports that she has not recorded a fever but woke up two nights ago with cold sweats. She states that she called an ambulance today because she still is not feeling better and just started the medications and wanted to make sure she could get to the ED and get checked out. The patient notes she is slightly winded going up and down stairs but denies any other symptoms. Home Medications Home Medications Medication Instructions Recorded Confirmed Type L.acidoph-L.rhamn-B.bif-B.long 1 tab PO QAM 06/02/19 06/02/19 History [Probiotic Acidophilus Biobeads] amlodipine 2.5 mg PO HS 06/02/19 06/02/19 History amlodipine 5 mg PO DAILY@1200 06/02/19 06/02/19 History aspirin 81 mg PO QAM 06/02/19 06/02/19 History atorvastatin 40 mg PO HS 06/02/19 06/02/19 History calcium carbonate [Calcium 500] 500 mg PO QAM 06/02/19 06/02/19 History carvedilol 25 mg PO BID 06/02/19 06/02/19 History cholecalciferol (vitamin D3) 1,000 unit PO QAM 06/02/19 06/02/19 History [Vitamin D3] doxycycline hyclate 100 mg PO BID 06/02/19 06/02/19 History lorazepam 0.5 mg PO HS 06/02/19 06/02/19 History losartan 50 mg PO BID 06/02/19 06/02/19 History methylcellulose (laxative) 500 mg PO Q2D 06/02/19 06/02/19 History multivitamin [Multiple Vitamins] 1 tab PO QAM 06/02/19 06/02/19 History omega 0-csu-iwp-fish oil [Lee-3] 1 cap PO BID 06/02/19 06/02/19 History prednisolone acetate 1 drp OPR DAILY PRN 06/02/19 06/02/19 History prednisone 40 mg PO QAM 06/02/19 06/02/19 History spironolactone 12.5 mg PO QAM 06/02/19 06/02/19 History vit C,G-Gc-htcug-lutein-zeaxan 1 tab PO BID 06/02/19 06/02/19 History [PreserVision AREDS-2] Allergies Allergy/AdvReac Type Severity Reaction Status Date / Time Sulfa (Sulfonamide Allergy Intermediate rash Verified 06/02/19 11:53 Antibiotics) codeine AdvReac Intermediate N/V Verified 06/02/19 11:53 Past Med/Surg History Medical History Anxiety (Chronic) Carotid artery disease (Chronic) Nonischemic cardiomyopathy (Chronic) Renal artery stenosis (Chronic) Breast cancer (Resolved 05/16/11) "Right breast discomfort and abnormal findings on mammography Status post core needle biopsy revealing 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 05/16/2011 Status post lumpectomy and sentinel lymph node biopsy 06/03/2011 Stage pT1b [id number] Status post completion of radiation therapy utilizing accelerated partial breast treatment completed 08/20/2011 received 3850 cGy" History of breast cancer (Chronic) Hypertension (Chronic) Carotid bruit (Chronic) History of melanoma (Chronic) Osteoporosis (Chronic) Dyslipidemia (Chronic) CKD (chronic kidney disease), stage III (Chronic) Detached retina (Chronic) Allergic rhinitis (Chronic) PVC (premature ventricular contraction) (Chronic) Asthma HX: breast cancer Hypertension Surgical History Status post cataract extraction (Chronic) Status post partial mastectomy of right breast (Chronic) Family History Other Cancer Social History Preferred Language: [place] Communication Ability: Effective Rn Patient Care Required: No Beliefs That Will Affect Care: None Current Living Situation: Alone Other Information That Helps Us Care for You: No Feels Safe at Home: Yes Safety Concerns: Feels Safe At This Time Smoking Status: Never smoker Hx Alcohol Use: No Hx Substance Use: No Review of Systems See HPI for pertinent positives & negatives. and A total of 10 systems reviewed and were otherwise negative Physical Exam Vital Signs Vital Signs - 24 hr 06/02/19 09:48 06/02/19 10:00 06/02/19 10:35 Temperature 36.5 C Temperature Source Oral Sepsis Recent Fever Within 48 Hours No Sepsis New/Unexplained Change in Mental Status No Sepsis Action Taken by Nursing No Action Required Pulse Rate 63 Pulse Rate [Right Apical] 58 L 60 Pulse Rate from SpO2 Sensor Pulse Rhythm Regular Pulse Rhythm [Right Apical] Regular Regular Pulse Strength Normal Pulse Strength [Right Apical] Normal Normal Respiratory Rate 20 18 20 Respiratory Effort / Characteristics Non-Labored Spontaneous Non-Labored Spontaneous Non-Labored Spontaneous Respiratory Depth Normal Normal Normal Respiratory Pattern Regular Regular Regular Blood Pressure 156/57 H Blood Pressure [Left Arm] 138/67 147/55 H Blood Pressure Mean 90 Blood Pressure Mean [Left Arm] 90 85 Blood Pressure Position Sitting Blood Pressure Position [Left Arm] Sitting Sitting Pulse Oximetry 97 95 94 Oxygen Delivery Method Room Air Room Air Room Air Oxygen Flow Rate 06/02/19 10:39 06/02/19 10:45 06/02/19 11:00 Temperature Temperature Source Sepsis Recent Fever Within 48 Hours Sepsis New/Unexplained Change in Mental Status Sepsis Action Taken by Nursing Pulse Rate 62 59 L Pulse Rate [Right Apical] 61 Pulse Rate from SpO2 Sensor 59 L Pulse Rhythm Regular Pulse Rhythm [Right Apical] Pulse Strength Pulse Strength [Right Apical] Respiratory Rate 18 18 12 Respiratory Effort / Characteristics Non-Labored Spontaneous Respiratory Depth Respiratory Pattern Blood Pressure 157/55 H Blood Pressure [Left Arm] Blood Pressure Mean 89 Blood Pressure Mean [Left Arm] Blood Pressure Position Blood Pressure Position [Left Arm] Pulse Oximetry 94 99 93 Oxygen Delivery Method Room Air Nebulizer Room Air Oxygen Flow Rate 8 06/02/19 11:37 06/02/19 12:00 06/02/19 12:30 Temperature Temperature Source Sepsis Recent Fever Within 48 Hours Sepsis New/Unexplained Change in Mental Status Sepsis Action Taken by Nursing Pulse Rate 60 58 L 63 Pulse Rate [Right Apical] Pulse Rate from SpO2 Sensor 60 58 L 63 Pulse Rhythm Pulse Rhythm [Right Apical] Pulse Strength Pulse Strength [Right Apical] Respiratory Rate 20 13 14 Respiratory Effort / Characteristics Respiratory Depth Respiratory Pattern Blood Pressure 141/76 H 157/55 H 153/51 H Blood Pressure [Left Arm] Blood Pressure Mean 97 89 85 Blood Pressure Mean [Left Arm] Blood Pressure Position Blood Pressure Position [Left Arm] Pulse Oximetry 94 94 92 Oxygen Delivery Method Room Air Room Air Room Air Oxygen Flow Rate GENERAL: Patient is in no acute distress. HEENT: No acute trauma, normocephalic atraumatic, mucous membranes moist, no nasal congestion, no scleral icterus. NECK: No stridor, no adenopathy, no meningismus, trachea is midline. LUNGS: Clear to auscultation bilaterally, no wheeze, no rhonchi, breath sounds equal. Dry cough noted. HEART: Subtle systolic murmur, regular rate regular rhythm. ABDOMEN: Soft, nontender, bowel sounds positive, no hernias, no peritonitis. EXTREMITIES: No cyanosis or edema, full range of motion of all the joints without pain or difficulty, no signs for acute trauma. NEUROLOGIC: Oriented x 3, no acute motor or sensory deficits, no focal weakness. SKIN: No rash, no jaundice, no diaphoresis. Course 1021: Past medical records reviewed. The patient was evaluated in room B09. A complete history and physical exam was performed. 1156: I checked on the patient and updated her on her results. I recommended hospitalization to her. 1158: I spoke with Roma GARCIA for Dr. Prado will evaluate for further management. 1159: I updated the patient on her results and the treatment plan. Administered Medications Sodium Chloride (Nss 1000ml) 1,000 mls @ 60 mls/hr IV .[id number] HERO Stop: 06/03/19 08:29 Last Admin: 06/02/19 15:52 Dose: 60 mls/hr Documented by: [id number] Discontinued Medications Albuterol (Duoneb) 3 ml INH NOW STA Stop: 06/02/19 10:27 Last Admin: 06/02/19 10:36 Dose: 3 ml Documented by: [id number] Benzonatate (Tessalon Perle) 100 mg PO NOW ONE Stop: 06/02/19 10:27 Last Admin: 06/02/19 10:46 Dose: 100 mg Documented by: [id number] Sodium Chloride (Nss 1000ml) 1,000 mls @ 999 mls/hr IV .Q1H1M ONE Stop: 06/02/19 11:30 Last Infusion: 06/02/19 11:52 Dose: 0 mls/hr Documented by: [id number] Admin: 06/02/19 10:46 Dose: 999 mls/hr Documented by: [id number] Ceftriaxone Sodium (Rocephin) 1,000 mg in 50 mls @ 100 mls/hr IV NOW STA Stop: 06/02/19 12:22 Last Infusion: 06/02/19 13:06 Dose: 0 mls/hr Documented by: [id number] Admin: 06/02/19 12:36 Dose: 100 mls/hr Documented by: [id number] Ioversol (Optiray 320 100ml) 95 ml IV ONCE PRN PRN Reason: Interaction Checking Stop: 06/06/19 11:24 Last Admin: 06/02/19 11:26 Dose: 95 ml Documented by: [id number] Medical Decision Making Differential Diagnosis Differential diagnosis: bronchitis or pneumonia, CHF, malignancy, URI, influenza, dehydration, electrolyte imbalance, bronchospasm, COPD exacerbation Medical Records Attestation: I reviewed the patient's medical records. Home Medications Current Medication List: was personally reviewed by me Laboratory Data Attestation: I reviewed the patient's lab results. Result diagrams: 06/02/19 09:56 06/02/19 09:56 Lab Results 06/02/19 06/02/19 06/02/19 Range/Units 09:56 09:56 09:56 WBC 10.68 (4.8-10.8) K/uL RBC 3.62 L (4.2-5.4) M/uL Hgb 11.1 L (12.0-16.0) g/dL Hct 31.3 L (37-47) % MCV 86.5 (80-100) fL MCH 30.7 (25-34) pg MCHC 35.5 (32-36) g/dL RDW Std Deviation 45.5 (36.4-46.3) fL RDW Coeff of Clementina 14.5 (11.5-14.5) % Plt Count 255 (130-400) K/uL MPV 10.2 (7.4-10.4) fL Immature Gran % (Auto) 0.2 % Neut % (Auto) 82.4 % Lymph % (Auto) 10.5 % [place] % (Auto) 6.5 % Eos % (Auto) 0.3 % Baso % (Auto) 0.1 % Immature Gran # (Auto) 0.02 (0.00-0.02) K/uL Neut # (Auto) 8.81 H (1.4-6.5) K/uL Lymph # (Auto) 1.12 L (1.2-3.4) K/uL [place] # (Auto) 0.69 H (0.11-0.59) K/uL Eos # (Auto) 0.03 (0-0.5) K/uL Baso # (Auto) 0.01 (0-0.2) K/uL ESR 13 (0-21) mm/hr Sodium 126 L (136-145) mmol/L Potassium 4.6 (3.5-5.1) mmol/L Chloride 95 L (98-107) mmol/L Carbon Dioxide 23 (21-32) mmol/L Anion Gap 8.0 (3-11) BUN 20 H (7-18) mg/dl Creatinine 1.09 (0.6-1.2) mg/dl Est Cr Clr Drug Dosing 30.0 ml/min Est GFR ( Amer) 52.9 Est GFR (Non-Af Amer) 45.6 BUN/Creatinine Ratio 18.5 (10-20) Glucose 141 H (70-99) mg/dl Osmolality (280-300) mOsm/kg Calcium 8.6 (8.5-10.1) mg/dl Total Bilirubin 0.5 (0.2-1) mg/dl AST 23 (15-37) U/L ALT 26 (12-78) U/L Alkaline Phosphatase 57 (45-117) U/L Troponin I < 0.015 (0-0.045) ng/ml C-Reactive Protein (0-0.29) mg/dl Total Protein 6.9 (6.4-8.2) gm/dl Albumin 3.4 (3.4-5.0) gm/dl Globulin 3.5 (2.5-4.0) gm/dl Albumin/Globulin Ratio 1.0 (0.9-2) Procalcitonin (0-0.5) ng/ml Influenza Type A Ag (Neg) Influenza Type B Ag (Neg) 06/02/19 06/02/19 06/02/19 Range/Units 09:56 09:56 09:56 WBC (4.8-10.8) K/uL RBC (4.2-5.4) M/uL Hgb (12.0-16.0) g/dL Hct (37-47) % MCV (80-100) fL MCH (25-34) pg MCHC (32-36) g/dL RDW Std Deviation (36.4-46.3) fL RDW Coeff of Clementina (11.5-14.5) % Plt Count (130-400) K/uL MPV (7.4-10.4) fL Immature Gran % (Auto) % Neut % (Auto) % Lymph % (Auto) % [place] % (Auto) % Eos % (Auto) % Baso % (Auto) % Immature Gran # (Auto) (0.00-0.02) K/uL Neut # (Auto) (1.4-6.5) K/uL Lymph # (Auto) (1.2-3.4) K/uL [place] # (Auto) (0.11-0.59) K/uL Eos # (Auto) (0-0.5) K/uL Baso # (Auto) (0-0.2) K/uL ESR (0-21) mm/hr Sodium (136-145) mmol/L Potassium (3.5-5.1) mmol/L Chloride (98-107) mmol/L Carbon Dioxide (21-32) mmol/L Anion Gap (3-11) BUN (7-18) mg/dl Creatinine (0.6-1.2) mg/dl Est Cr Clr Drug Dosing ml/min Est GFR ( Amer) Est GFR (Non-Af Amer) BUN/Creatinine Ratio (10-20) Glucose (70-99) mg/dl Osmolality 269 L (280-300) mOsm/kg Calcium (8.5-10.1) mg/dl Total Bilirubin (0.2-1) mg/dl AST (15-37) U/L ALT (12-78) U/L Alkaline Phosphatase (45-117) U/L Troponin I (0-0.045) ng/ml C-Reactive Protein < 0.29 (0-0.29) mg/dl Total Protein (6.4-8.2) gm/dl Albumin (3.4-5.0) gm/dl Globulin (2.5-4.0) gm/dl Albumin/Globulin Ratio (0.9-2) Procalcitonin < 0.05 (0-0.5) ng/ml Influenza Type A Ag (Neg) Influenza Type B Ag (Neg) 06/02/19 Range/Units 10:47 WBC (4.8-10.8) K/uL RBC (4.2-5.4) M/uL Hgb (12.0-16.0) g/dL Hct (37-47) % MCV (80-100) fL MCH (25-34) pg MCHC (32-36) g/dL RDW Std Deviation (36.4-46.3) fL RDW Coeff of Clementina (11.5-14.5) % Plt Count (130-400) K/uL MPV (7.4-10.4) fL Immature Gran % (Auto) % Neut % (Auto) % Lymph % (Auto) % [place] % (Auto) % Eos % (Auto) % Baso % (Auto) % Immature Gran # (Auto) (0.00-0.02) K/uL Neut # (Auto) (1.4-6.5) K/uL Lymph # (Auto) (1.2-3.4) K/uL [place] # (Auto) (0.11-0.59) K/uL Eos # (Auto) (0-0.5) K/uL Baso # (Auto) (0-0.2) K/uL ESR (0-21) mm/hr Sodium (136-145) mmol/L Potassium (3.5-5.1) mmol/L Chloride (98-107) mmol/L Carbon Dioxide (21-32) mmol/L Anion Gap (3-11) BUN (7-18) mg/dl Creatinine (0.6-1.2) mg/dl Est Cr Clr Drug Dosing ml/min Est GFR ( Amer) Est GFR (Non-Af Amer) BUN/Creatinine Ratio (10-20) Glucose (70-99) mg/dl Osmolality (280-300) mOsm/kg Calcium (8.5-10.1) mg/dl Total Bilirubin (0.2-1) mg/dl AST (15-37) U/L ALT (12-78) U/L Alkaline Phosphatase (45-117) U/L Troponin I (0-0.045) ng/ml C-Reactive Protein (0-0.29) mg/dl Total Protein (6.4-8.2) gm/dl Albumin (3.4-5.0) gm/dl Globulin (2.5-4.0) gm/dl Albumin/Globulin Ratio (0.9-2) Procalcitonin (0-0.5) ng/ml Influenza Type A Ag Neg for Influ A (Neg) Influenza Type B Ag Neg for Influ B (Neg) Imaging Data Radiologist's Impression: Radiology results as stated below per my review and the radiologist's interpretation: CT OF THE CHEST WITH IV CONTRAST CLINICAL HISTORY: cough, history of breast cancer, abnormal sternal films. COMPARISON STUDY: Chest CT July 15, 2016. Chest radiograph February 22, 2017. TECHNIQUE: Following IV administration of 95 mL of Optiray-320, helical axial images of the chest were obtained. Sagittal and coronal reconstructions were viewed as well as maximal intensity projections on an independent 3-D workstation. Automated exposure control was utilized for the study. A dose lowering technique was utilized adhering to the principles of ALARA. CT DOSE: 214.91 mGy.cm FINDINGS: No enlarged thoracic lymph nodes are present. The heart is moderately enlarged. There is no pericardial effusion. Moderate coronary artery calcification is noted. No pneumothorax or pleural effusion is noted. There are are nodular and tree-in-bud opacities within the right upper lobe. These include an 8 mm right upper lobe nodule on image 128 of 346. There is no lobar consolidation. A few left renal cysts are noted. There is a hepatic cyst. Calcified granulomas within the lungs are noted. There are calcified thoracic lymph nodes. No thoracic aortic dissection is present. No sternal abnormality is identified. IMPRESSION: 1. Mild multifocal airspace opacities within the right upper lobe with tree-in-bud nodules. The findings suggest a mild infectious process. A follow-up chest CT in 3 months to ensure resolution is recommended. 2. Moderate cardiomegaly and coronary artery calcification. Electronically signed by: Marciano Ku M.D. 06/02/2019 11:47 AM ECG Data Attestation: I personally reviewed and interpreted this ECG as follows: Indication: SOB/dyspnea Rate (beats per minute): 60 Rhythm: normal sinus ECG Intervals/blocks: Normal QT (414) ECG ST segments: ST elevation (no ST elevation) ECG Findings: Other (no ectopy ) Blood Pressure Blood Pressure Findings: Elevated blood pressure Blood Pressure Disposition: further management by hospitalist MDM Narrative There is no leukocytosis, no concerning anemia. Sodium is quite low at 126. No kidney failure. No liver enzyme elevation. EKG showed a sinus rhythm, no acute ischemia. Cardiac enzyme testing x1 is not consistent with acute cardiac injury. Chest CT does show evidence for a right upper lung pneumonia. No evidence for pneumothorax or CHF. Blood cultures are pending. Influenza testing was negative. The patient was given a DuoNeb, she received oral Tessalon, IV saline, IV ceftriaxone. She seems to be resting comfortably. The patient presents with ongoing cough and congestion. She does have pneumonia by work-up. She is also hyponatremic. With her findings, a hospital stay is warranted. I spoke to the patient and case management. The on-call hospitalist was consulted. Impression & Plan Pneumonia, Breath shortness, Weakness, Acute hyponatremia Discharge Plan Visit Data *Final* Discharge Date/Time: 06/02/19 13:57 Chief Complaint: Cough Stated Complaint: pneumonia/cough ED Provider: Scott Coffey Discharge Problem: Pneumonia, Breath shortness, Weakness, Acute hyponatremia Patient Disposition: Admitted As Inpatient Discharge Instructions Interventions: ED Discharge Assessment Last Done: 06/02/19 13:57 Discharge Problem: Pneumonia Qualifiers: Pneumonia type: due to unspecified organism Laterality: unspecified laterality Lung location: unspecified part of lung Qualified Code(s): J18.9 - Pneumonia, unspecified organism The darenibe's documentation has been prepared under my direction and personally reviewed by me in its entirety. I confirm that the note above accurately reflects all work, treatment, procedures, and medical decision making performed by me.
[2019-06-02 15:42] LABS: Appearance Urine Clear (Clear); Bacteria Urine Automated Negative (Negative); Bilirubin Urine Negative (Negative); Blood Urine Negative (Negative); Cast Urine Automated 0 /lpf (0-5); Color Urine Yellow; Epithelial Cell Urine Auto 0-5 /lpf (0-5); Glucose Urine UA Negative (Negative); Ketones Urine Negative (Negative); Leukocyte Esterase Urine Negative (Negative); Nitrite Urine Negative (Negative); Protein Urine Trace (Negative); RBC Urine Automated 0-4 /hpf (0-4); Specific Gravity Urine 1.024 (1.000-1.030); Urobilinogen Urine Negative (Negative); WBC Urine Automated 0 /hpf (0-5)
[2019-06-02] MEDS ORDERED: SODIUM CHLORIDE 0.9% 1000ML 1,000 ML IV SCH (15:50)
[2019-06-02 15:58] LABS: Urine Potassium 16.1 mmol/L
[2019-06-02 19:10] LABS: BUN Creatinine Ratio 17.8 (10-20); Calcium 8.3 mg/dl (8.5-10.1); Creatinine Clr Calc Pharmacy 23.7 ml/min; Est GFR (African American) 40.8; Est GFR (Non-African American) 35.2; Potassium 4.2 mmol/L (3.5-5.1)
[2019-06-02] MEDS: HEPARIN SOD 5,000 UNIT/0.5 ML VIAL SQ SCH (20:29)
[2019-06-02] MEDS: carvediloL 25 MG TAB PO SCH (20:33)
[2019-06-02] MEDS: ATORVASTATIN 40 MG TAB PO SCH (20:34)
[2019-06-02] MEDS: LOSARTAN POTASSIUM 50 MG TAB PO SCH (20:34)
[2019-06-02] MEDS: AMLODIPINE BESYLATE 5 MG TAB PO SCH (20:36)
[2019-06-02] MEDS: OMEGA-3 (PURIFIED FISH OIL) 1 GM CAP PO SCH (20:39)
[2019-06-02] MEDS: DOXYCYCLINE HYCLATE 100 MG in DEXTROSE 5% 100 ML IV SCH (20:44)
[2019-06-02] MEDS ORDERED: NON-FORMULARY MEDICATION (Vit C,E-Zn-Coppr-Lutein-Zeaxan [Preservision Areds-2] 1 TAB) PO SCH (21:00)
[2019-06-02] MEDS: LORazepam 0.5 MG TAB PO PRN (22:43)
[2019-06-03 01:15] LABS: Hematocrit (blood only) 28.7 % (37-47); Hemoglobin 10.4 g/dL (12.0-16.0); Immature Granulocytes # (auto) 0.03 K/uL (0.00-0.02); Immature Granulocytes % (auto) 0.4 %; Lymphocytes # (auto) 1.48 K/uL (1.2-3.4); Lymphocytes % (auto) 18.5 %; Mean Corpuscular Hgb Conc 36.2 g/dL (32-36); Mean Corpuscular Volume 85.4 fL (80-100); Mean Platelet Volume 9.8 fL (7.4-10.4); Monocytes # (auto) 1.13 K/uL (0.11-0.59); Monocytes % (auto) 14.1 %; Neutrophils # (auto) 5.38 K/uL (1.4-6.5); Platelet Count 239 K/uL (130-400); RDW Coefficient of Variation 14.4 % (11.5-14.5); RDW Standard Deviation 45.3 fL (36.4-46.3); Red Blood Count 3.36 M/uL (4.2-5.4); White Blood Count 8.02 K/uL (4.8-10.8)
[2019-06-03 01:34] LABS: Albumin Level 2.8 gm/dl (3.4-5.0); BUN Creatinine Ratio 22.9 (10-20); Calcium 7.8 mg/dl (8.5-10.1); Creatinine Clr Calc Pharmacy 30.8 ml/min; Est GFR (African American) 55.9; Est GFR (Non-African American) 48.3; Potassium 4.1 mmol/L (3.5-5.1)
[2019-06-03 01:37] LABS: Albumin Globulin Ratio 0.8 (0.9-2); Bilirubin,Total 0.4 mg/dl (0.2-1); Globulin 3.4 gm/dl (2.5-4.0); Total Protein 6.2 gm/dl (6.4-8.2)
--- NOTE | 2019-06-03 09:20 | Hospitalist Progress Note ---
Date of Service June 03, 2019 Assessment & Plan (1) Pneumonia: CT chest shows mild multifocal airspace opacities within the right upper lobe with tree-in-bud nodules. The findings suggest a mild infectious process. Moderate cardiomegaly and coronary artery calcification. Afebrile No leukocytosis Negative procalcitonin and flu Legionella pending Continue ceftriaxone and doxycycline (2) Acute hyponatremia: On admission, Corrected sodium 127 for glucose of 141. Baseline Na: 136 Na this morning is 134. Serum osmolality low 269. Urine osmolality 219. Urine Na 27 Patient is euvolemic on exam. Hypotonic hyponatremia Likely from polydipsia (she acknowledged liberal fluid intake) + diuretic Continue to hold diuretics for now Monitor fluid intake. Restrict fluid intake to 1.5-2L/day (3) Hypertension: Monitor BP Continue amlodipine, carvedilol and losartan home doses Hold spironolactone for now (4) Nonischemic cardiomyopathy: Echo 2017: EF: 45-50%, grade II diastolic dysfunction, severe mitral regurgitation, severe left atrial enlargement Holding spironolactone as above Appears euvolemic (5) CKD (chronic kidney disease), stage III: Cr: 1.04 this morning. Baseline 1.1-1.2 Monitor renal functions Avoid nephrotoxic agents when possible Ca this AM is 7.8 but Corrected Ca for albumin is normal 8.8 (6) Dyslipidemia: Continue statin (7) Anxiety: Continue Ativan prn DVT Prophylaxis Heparin SQ Full Code as per discussion with pt Follows with Dr Doherty for routine care Subjective Patient still coughing with productive sputum Reports no more chills. Denied any chest pain or shortness of breath. Reports feeling better today Review of Systems Review of Systems: All systems reviewed and unremarkable except for mentioned above. Physical Exam Constitutional: well developed and + well hydrated; no acute distress Eyes: PERRL, conjunctivae normal, anicteric sclerae ENMT: external ear and nose normal, oropharynx normal Neck: trachea midline, no thyromegaly Respiratory: normal respiratory effort, lungs clear to auscultation Cardiovascular: Rate/Rhythm: regular rate and regular rhythm Heart Sounds: normal S1 and normal S2 Extremities: no edema Gastrointestinal (Abdomen): normal bowel sounds, soft, nontender, no hepatosplenomegaly Neurologic: PERRL, EOMI, accommodation nl, no face palsy, no dysarthria Psychiatric: A+Ox3, euthymic affect Results & Data Vital Signs (Past 12 Hours) Vital Signs Temp Pulse Pulse Resp BP Pulse Ox 06/03/19 04:28 36.8 C 61 18 153/64 H 93 06/03/19 00:11 59 L 06/02/19 22:55 36.1 C L 69 20 157/53 H 95 (1) Pneumonia Laterality: unspecified laterality Lung location: unspecified part of lung Pneumonia type: due to unspecified organism Qualified Code(s): J18.9 - Pneum onia, unspecified organism
[2019-06-03] MEDS: OMEGA-3 (PURIFIED FISH OIL) 1 GM CAP PO SCH ×2 (10:07→21:00)
[2019-06-03] MEDS: CHOLECALCIFEROL 1,000 UNITS TAB PO SCH (10:07)
[2019-06-03] MEDS: HEPARIN SOD 5,000 UNIT/0.5 ML VIAL SQ SCH ×2 (10:07→20:57)
[2019-06-03] MEDS: carvediloL 25 MG TAB PO SCH ×2 (10:07→20:58)
[2019-06-03] MEDS: CALCIUM CARBONATE 1250MG TAB PO SCH (10:07)
[2019-06-03] MEDS: LACTOBACILLUS ACIDOPHILUS (FLORANEX) TAB PO SCH (10:08)
[2019-06-03] MEDS: ASPIRIN 81 MG ECTAB PO SCH (10:08)
[2019-06-03] MEDS: LOSARTAN POTASSIUM 50 MG TAB PO SCH ×2 (10:08→20:59)
[2019-06-03] MEDS: MULTIVITAMIN TAB PO SCH (10:08)
[2019-06-03] MEDS: cefTRIAXone SODIUM 1,000 MG in DEXTROSE 5% 50 ML IV SCH (10:09)
[2019-06-03] MEDS: DOXYCYCLINE HYCLATE 100 MG in DEXTROSE 5% 100 ML IV SCH ×2 (10:38→20:55)
[2019-06-03] MEDS ORDERED: AMLODIPINE BESYLATE 5 MG TAB PO SCH (12:00)
[2019-06-03] MEDS: ACETAMINOPHEN 325 MG TAB PO PRN ×2 (15:43→20:54)
[2019-06-03] MEDS: LORazepam 0.5 MG TAB PO PRN (20:55)
[2019-06-03] MEDS: AMLODIPINE BESYLATE 5 MG TAB PO SCH (20:58)
[2019-06-03] MEDS: ATORVASTATIN 40 MG TAB PO SCH (20:59)
[2019-06-04] MEDS: CHOLECALCIFEROL 1,000 UNITS TAB PO SCH (07:41)
[2019-06-04] MEDS: CALCIUM CARBONATE 1250MG TAB PO SCH (07:41)
[2019-06-04] MEDS: cefTRIAXone SODIUM 1,000 MG in DEXTROSE 5% 50 ML IV SCH (07:42)
[2019-06-04] MEDS: carvediloL 25 MG TAB PO SCH ×2 (07:43→20:25)
[2019-06-04] MEDS: ASPIRIN 81 MG ECTAB PO SCH (07:43)
[2019-06-04] MEDS: OMEGA-3 (PURIFIED FISH OIL) 1 GM CAP PO SCH ×2 (07:44→20:27)
[2019-06-04] MEDS: LOSARTAN POTASSIUM 50 MG TAB PO SCH (07:44)
[2019-06-04] MEDS: MULTIVITAMIN TAB PO SCH (07:44)
[2019-06-04] MEDS: LACTOBACILLUS ACIDOPHILUS (FLORANEX) TAB PO SCH (07:44)
[2019-06-04] MEDS: ACETAMINOPHEN 325 MG TAB PO PRN ×2 (07:47→20:24)
[2019-06-04] MEDS: DOXYCYCLINE HYCLATE 100 MG in DEXTROSE 5% 100 ML IV SCH ×2 (07:48→20:26)
[2019-06-04 07:53] LABS: BUN Creatinine Ratio 17.9 (10-20); Calcium 8.2 mg/dl (8.5-10.1); Creatinine Clr Calc Pharmacy 31.2 ml/min; Est GFR (African American) 56.6; Est GFR (Non-African American) 48.8; Potassium 4.3 mmol/L (3.5-5.1)
[2019-06-04 07:57] LABS: Hematocrit (blood only) 30.1 % (37-47); Hemoglobin 10.6 g/dL (12.0-16.0); Mean Corpuscular Hemoglobin 30.5 pg (25-34); Mean Corpuscular Hgb Conc 35.2 g/dL (32-36); Mean Corpuscular Volume 86.5 fL (80-100); Mean Platelet Volume 9.9 fL (7.4-10.4); Platelet Count 252 K/uL (130-400); RDW Coefficient of Variation 14.6 % (11.5-14.5); RDW Standard Deviation 46.1 fL (36.4-46.3); Red Blood Count 3.48 M/uL (4.2-5.4); White Blood Count 22.46 K/uL (4.8-10.8)
[2019-06-04] MEDS: HEPARIN SOD 5,000 UNIT/0.5 ML VIAL SQ SCH (09:21)
--- NOTE | 2019-06-04 10:39 | Hospitalist Progress Note ---
Date of Service June 04, 2019 Assessment & Plan (1) Pneumonia: CT chest shows mild multifocal airspace opacities within the right upper lobe with tree-in-bud nodules. The findings suggest a mild infectious process. Moderate cardiomegaly and coronary artery calcification. Has remained afebrile Has leukocytosis today. WBC was 8 yesterday, now 22 BP was running higher yesterday. Get sputum culture ordered on admission Blood culture on admission negative 24hrs. Will repeat blood cultures Negative procalcitonin and flu on admission Legionella pending Continue ceftriaxone and doxycycline (2) Acute hyponatremia: On admission, Corrected sodium 127 for glucose of 141. Baseline Na: 136 Na this morning is 133. Serum osmolality low 269. Urine osmolality 219. Urine Na 27 Patient is euvolemic on exam. Hypotonic hyponatremia Likely from polydipsia (she acknowledged liberal fluid intake) + diuretic Continue to hold diuretics for now Continue fluid restriction and monitoring (3) Hypertension: Has symptomatic hypotension this morning Likely due to antihypertensive, rule out sepsis Hold all antihypertensive and reassess BP (4) Nonischemic cardiomyopathy: Echo 2017: EF: 45-50%, grade II diastolic dysfunction, severe mitral regurgitation, severe left atrial enlargement Holding spironolactone as above Currently euvolemic (5) CKD (chronic kidney disease), stage III: Cr: 1.03 this morning. Baseline 1.1-1.2 Monitor renal functions Avoid nephrotoxic agents when possible (6) Dyslipidemia: Continue statin (7) Anxiety: Continue Ativan prn DVT Prophylaxis Heparin SQ Full Code as per discussion with pt Follows with Dr Doherty for routine care Subjective Patient seen and evaluated Reports that she started having dizziness after taking blood pressure medications this morning. Still coughing. Stated cough frequency has improved significantly. Denied any fevers, nausea, vomiting Denied abdominal pain, diarrhea. Reports anorexia and constipation. Passes flatus Denied any dysuria, frequency, urgency Review of Systems Review of Systems: All systems reviewed and unremarkable except for mentioned above. Physical Exam Constitutional: well developed; no acute distress Eyes: PERRL, conjunctivae normal, anicteric sclerae ENMT: external ear and nose normal, oropharynx normal Neck: trachea midline, no thyromegaly Respiratory: normal respiratory effort and + cough; no respiratory distress and does not use accessory muscles Auscultation: lungs clear to auscultation bilaterally Cardiovascular: Rate/Rhythm: regular rate and regular rhythm Heart Sounds: normal S1 and normal S2 Extremities: no edema Gastrointestinal (Abdomen): normal bowel sounds, soft, nontender, no hepatosplenomegaly Musculoskeletal: no cyanosis or clubbing, extremities motor strength 5/5 Neurologic: PERRL, EOMI, accommodation nl, no face palsy, no dysarthria Psychiatric: A+Ox3, euthymic affect Results & Data Vital Signs (Past 12 Hours) Vital Signs Temp Pulse Pulse Resp BP Pulse Ox 06/04/19 09:46 67 94/58 L 06/04/19 07:51 36.8 C 76 18 118/64 90 06/04/19 03:19 36.8 C 77 18 130/55 L 91 06/04/19 01:13 74 06/03/19 23:41 36.6 C 69 17 107/54 L 92 Laboratory Results Short CBC 06/04/19 Range/Units 07:11 WBC 22.46 H (4.8-10.8) K/uL Hgb 10.6 L (12.0-16.0) g/dL Hct 30.1 L (37-47) % Plt Count 252 (130-400) K/uL [facility] 06/04/19 07:11 Sodium 133 L Potassium 4.3 Chloride 103 Carbon Dioxide 23 BUN 18 Creatinine 1.03 Glucose 101 H Calcium 8.2 L (1) Pneumonia Laterality: unspecified laterality Lung location: unspecified part of lung Pneumonia type: due to unspecified organism Qualified Code(s): J18.9 - Pneumonia, unspecified organism
[2019-06-04] MEDS ORDERED: POLYETHYLENE (MIRALAX) 17 GM PACK PO PRN (16:20)
[2019-06-04] MEDS ORDERED: Heparin IV Low Dose *NO* Bolus IV SCH (19:07)
[2019-06-04] MEDS: ATORVASTATIN 40 MG TAB PO SCH (20:25)
[2019-06-04] MEDS: HEPARIN SODIUM/DEXTROSE 25,000 UNITS/500 ML BAG IV SCH (20:51)
[2019-06-04] MEDS: LORazepam 0.5 MG TAB PO PRN (20:59)
[2019-06-04] MEDS ORDERED: carvediloL 25 MG TAB PO SCH (21:00)
[2019-06-04 21:06] LABS: Partial Thromboplastin Ratio 1.2; Partial Thromboplastin Time 33.3 Seconds (21.0-31.0)
[2019-06-05 01:45] LABS: Hematocrit (blood only) 27.4 % (37-47); Hemoglobin 9.9 g/dL (12.0-16.0); Mean Corpuscular Hemoglobin 31.2 pg (25-34); Mean Corpuscular Hgb Conc 36.1 g/dL (32-36); Mean Corpuscular Volume 86.4 fL (80-100); Mean Platelet Volume 9.8 fL (7.4-10.4); Platelet Count 221 K/uL (130-400); RDW Coefficient of Variation 14.6 % (11.5-14.5); RDW Standard Deviation 46.2 fL (36.4-46.3); Red Blood Count 3.17 M/uL (4.2-5.4); White Blood Count 21.41 K/uL (4.8-10.8)
[2019-06-05 02:08] LABS: BUN Creatinine Ratio 20.2 (10-20); Calcium 7.6 mg/dl (8.5-10.1); Creatinine Clr Calc Pharmacy 26.4 ml/min; Est GFR (African American) 46.1; Est GFR (Non-African American) 39.8; Potassium 4.2 mmol/L (3.5-5.1)
[2019-06-05 02:14] LABS: Partial Thromboplastin Ratio 2.5
[2019-06-05 02:24] LABS: Partial Thromboplastin Time 68.3 Seconds (21.0-31.0)
[2019-06-05] MEDS: carvediloL 25 MG TAB PO SCH ×2 (07:37→20:15)
[2019-06-05] MEDS: CALCIUM CARBONATE 1250MG TAB PO SCH (07:38)
[2019-06-05] MEDS: MULTIVITAMIN TAB PO SCH (07:38)
[2019-06-05] MEDS: LACTOBACILLUS ACIDOPHILUS (FLORANEX) TAB PO SCH (07:38)
[2019-06-05] MEDS: cefTRIAXone SODIUM 1,000 MG in DEXTROSE 5% 50 ML IV SCH (07:38)
[2019-06-05] MEDS: CHOLECALCIFEROL 1,000 UNITS TAB PO SCH (07:38)
[2019-06-05] MEDS: ASPIRIN 81 MG ECTAB PO SCH (07:38)
[2019-06-05] MEDS: OMEGA-3 (PURIFIED FISH OIL) 1 GM CAP PO SCH ×2 (07:38→20:15)
--- NOTE | 2019-06-05 07:49 | Cardiology Consultation ---
Date of Consultation June 05, 2019 Assessment & Plan (1) New onset atrial fibrillation: (2) Nonischemic cardiomyopathy: (3) Hypertension: (4) Mitral regurgitation: (5) Pneumonia: Natural history, pathophysiology, and stroke risk associated with atrial fibrillation discussed with patient at length. Continue intravenous heparin at this time. Recommend transition to Eliquis 2.5 mg twice daily at time of discharge. Reduced dose is indicated due to age greater than 80 and weight <60 kg. Patient has a long history of labile hypertension. Agree with reduction of carvedilol to 12.5 mg twice daily given episodes of slow ventricular response as well as intermittent hypotension. Amlodipine currently on hold. Losartan reduced to 25 mg twice daily. Continue to monitor telemetry as well as blood pressure closely. Other medications will be continued as previously ordered. Thank you for allowing me to participate in care of your patient. History of Present Illness Reason for Consultation: New onset atrial fibrillation Requesting Physician: Dr. Quezada Attending Physician: Rosa Quezada MD History of Present Illness 88-year-old female admitted to the hospital with community-acquired pneumonia 06/02/2019. Developed atrial fibrillation yesterday. Cardiovascular history noted below. Heparin drip initiated. Controlled ventricular response noted on telemetry. Carvedilol reduced to 12.5 mg twice daily by internal medicine due to hypotension and episodes of slow ventricular response. Currently patient feeling well from a cardiovascular perspective. Denies palpitations. Cough and dyspnea on exertion unchanged. Voices concern regarding intermittent hypotension. Offers no other concerns/complaints at this time. 2D echocardiogram report listed below. Problem List copied from [facility] record: 1.Labile and gsdhlevvy-xx-rixqqvs hypertension, longstanding with renal vascular disease. 2.Hypertensive heart disease with nonischemic cardiomyopathy, EF 45%. 3.Moderate to severe mitral insufficiency. 4.History of ventricular ectopy, stable status post ablation. 5. Dyslipidemia. 6.Chronic mild anxiety. 7. Moderate carotid artery disease 2D echocardiogram report 06/05/2019: The rhythm is atrial fibrillation. Left ventricular systolic function is mildly reduced. Ejection Fraction = 45-50%. The left atrium is moderately dilated. Aortic valve sclerosis moderate, without significant aortic valvular stenosis. There is moderate to severe mitral regurgitation. Dilated inferior vena cava with reduced collapsability with sniff indicates an elevated right atrial pressure of 15 mmHg 2D echocardiogram report 02/11/2017: Compared to last available study changes are noted as follows: mitral regurgitation has progressed from moderate to severe. Normal LV chamber size with normal wall thickness. Mildly reduced LV systolic function with mild global hypokinesis, EF 45-50%. Grade II diastolic dysfunction. Severe mitral regurgitation. Severe left atrial enlargement. Allergies Allergy/AdvReac Type Severity Reaction Status Date / Time Sulfa (Sulfonamide Allergy Intermediate rash Verified 06/02/19 11:53 Antibiotics) codeine AdvReac Intermediate N/V Verified 06/02/19 11:53 Home Medications Home Medications Medication Instructions Recorded Confirmed Type L.acidoph-L.rhamn-B.bif-B.long 1 tab PO QAM 06/02/19 06/02/19 History [Probiotic Acidophilus Biobeads] amlodipine 2.5 mg PO HS 06/02/19 06/02/19 History amlodipine 5 mg PO DAILY@1200 06/02/19 06/02/19 History aspirin 81 mg PO QAM 06/02/19 06/02/19 History atorvastatin 40 mg PO HS 06/02/19 06/02/19 History calcium carbonate [Calcium 500] 500 mg PO QAM 06/02/19 06/02/19 History carvedilol 25 mg PO BID 06/02/19 06/02/19 History cholecalciferol (vitamin D3) 1,000 unit PO QAM 06/02/19 06/02/19 History [Vitamin D3] doxycycline hyclate 100 mg PO BID 06/02/19 06/02/19 History lorazepam 0.5 mg PO HS 06/02/19 06/02/19 History losartan 50 mg PO BID 06/02/19 06/02/19 History methylcellulose (laxative) 500 mg PO Q2D 06/02/19 06/02/19 History multivitamin [Multiple Vitamins] 1 tab PO QAM 06/02/19 06/02/19 History omega 9-dqx-vga-fish oil [[place]-3] 1 cap PO BID 06/02/19 06/02/19 History prednisolone acetate 1 drp OPR DAILY PRN 06/02/19 06/02/19 History prednisone 40 mg PO QAM 06/02/19 06/02/19 History spironolactone 12.5 mg PO QAM 06/02/19 06/02/19 History vit C,R-Yn-avkrl-lutein-zeaxan 1 tab PO BID 06/02/19 06/02/19 History [PreserVision AREDS-2] Patient History Medical History Anxiety (Chronic) Carotid artery disease (Chronic) Nonischemic cardiomyopathy (Chronic) Renal artery stenosis (Chronic) Breast cancer (Resolved 05/16/11) "Right breast discomfort and abnormal findings on mammography Status post core needle biopsy revealing 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 05/16/2011 Status post lumpectomy and sentinel lymph node biopsy 06/03/2011 Stage pT1b [id number] Status post completion of radiation therapy utilizing accelerated partial breast treatment completed 08/20/2011 received 3850 cGy" History of breast cancer (Chronic) Hypertension (Chronic) Carotid bruit (Chronic) History of melanoma (Chronic) Osteoporosis (Chronic) Dyslipidemia (Chronic) CKD (chronic kidney disease), stage III (Chronic) Detached retina (Chronic) Allergic rhinitis (Chronic) PVC (premature ventricular contraction) (Chronic) Asthma HX: breast cancer Hypertension Surgical History Status post cataract extraction (Chronic) Status post partial mastectomy of right breast (Chronic) Family History Other Cancer Social History Preferred Language: Welsh Communication Ability: Effective Digital Advertising Analyst Required: No Beliefs That Will Affect Care: None marital status: / Current Living Situation: Alone Other Information That Helps Us Care for You: No Feels Safe at Home: Yes Safety Concerns: Feels Safe At This Time Smoking Status: Never smoker Hx Alcohol Use: No Hx Substance Use: No Review of Systems Review of Systems: All systems reviewed & are unremarkable except as noted in HPI & below Physical Exam Physical Exam: General: NAD, AAO x3, well nourished. HEENT: Normocephalic. Atraumatic. Conjunctiva pink, no scleral icterus. Neck: No carotid bruits, the carotid upstrokes are brisk. No JVD. No HJR Heart: Irregular rhythm, normal S1- S2. 2/6 holosystolic murmur heard best at the apex. PMI is not displaced. No RV heave. Lungs: Crackles at the bases bilaterally. Abdomen: Normal bowel sounds. Soft. Nontender. No masses or organomegaly. No abdominal bruits. Extremities: No clubbing, cyanosis, or edema. Pulses: radial=2/4, Dorsalis pedis =2/4, posterior tibial=2/4. Neuro: Cranial nerves grossly intact. No focal motor deficit. Results & Data Vital Signs (Past 12 Hours) Vital Signs Temp Pulse Resp BP BP BP Pulse Ox 06/05/19 07:46 154/72 H 06/05/19 07:34 36.5 C 68 16 148/65 H 167/78 H 97 06/05/19 03:42 37.1 C 66 18 103/61 90 06/04/19 23:52 36.7 C 66 20 103/52 L 91 (1) Pneumonia Laterality: unspecified laterality Lung location: unspecified part of lung Pneumonia type: due to unspecified organism Qualified Code(s): J18.9 - Pneumonia, unspecified organism
[2019-06-05] MEDS: DOXYCYCLINE HYCLATE 100 MG in DEXTROSE 5% 100 ML IV SCH (08:17)
[2019-06-05] MEDS: LOSARTAN POTASSIUM 25 MG TAB PO SCH ×2 (08:18→20:14)
[2019-06-05 08:43] LABS: Partial Thromboplastin Ratio 1.8
[2019-06-05 08:46] LABS: Partial Thromboplastin Time 48.5 Seconds (21.0-31.0)
--- NOTE | 2019-06-05 09:45 | Hospitalist Progress Note ---
Date of Service June 05, 2019 Assessment & Plan (1) New onset atrial fibrillation: New onset yesterday. Currently still in A. fib CHADVASC is 5 Currently on heparin drip Will follow cardiology recommendations Follow up echo results (2) Pneumonia: CT chest showed mild multifocal airspace opacities within the right upper lobe with tree-in-bud nodules. The findings suggest a mild infectious process. Moderate cardiomegaly and coronary artery calcification. Has remained afebrile Has leukocytosis yesterday. WBC was 22 yesterday, 21 today. Blood cultures from yesterday pending Blood culture on admission negative 24hrs. Negative procalcitonin and flu on admission Legionella pending Sputum culture had few staph aureus. However, patient is clinically improving Change antibiotics to cefuroxime and doxycycline to complete therapy (3) Acute hyponatremia: On admission, Corrected sodium 127 for glucose of 141. Baseline Na: 136 Na this morning is 130 from 133 yesterday. On admission, Serum osmolality low 269. Urine osmolality 219. Urine Na 27 Patient is euvolemic on exam. Hypotonic hyponatremia Likely from polydipsia (she acknowledged liberal fluid intake) + diuretic Continue to hold diuretics for now Recent drop from yesterday likely due to heparin in dextrose infusion started yesterday for new A.fib. Monitor sodium levels Continue fluid restriction (4) Hypertension: Has symptomatic hypotension yesterday Likely due to antihypertensive All antihypertensives were initially held. Carvedilol was resume yesterday night at half the home dose of 12.5mg bid BP running higher today. Was 154/72 this morning. Resumed losartan at half home dose of 25mg bid. Ok to allow BP ride slightly higher than normal especially with risk of fall with symptomatic hypotension and patient being on anticoagulation (5) Nonischemic cardiomyopathy: Echo 2017: EF: 45-50%, grade II diastolic dysfunction, severe mitral r egurgitation, severe left atrial enlargement Holding spironolactone as above Currently euvolemic (6) CKD (chronic kidney disease), stage III: Cr: 1.22 this morning. Baseline 1.1-1.2 Monitor renal functions Avoid nephrotoxic agents when possible (7) Dyslipidemia: Continue statin (8) Anxiety: Continue Ativan prn DVT Prophylaxis On heparin drip Subjective Patient reports cough is improving Dizziness had resolved No shortness of breath or chest pain, No fevers No palpitations, dyspnea on exertion. Still reports fatigue Review of Systems Review of Systems: All systems reviewed and unremarkable except for mentioned above. Physical Exam Constitutional: well developed; no acute distress and not ill appearing Eyes: PERRL, conjunctivae normal, anicteric sclerae ENMT: external ear and nose normal, oropharynx normal Respiratory: normal respiratory effort, lungs clear to auscultation Cardiovascular: Rate/Rhythm: + abnormal rhythm Heart Sounds: normal S1 and normal S2; no murmur Extremities: no pedal edema Gastrointestinal (Abdomen): normal bowel sounds, soft, nontender, no hepatosplenomegaly Musculoskeletal: no cyanosis or clubbing, extremities motor strength 5/5 Neurologic: PERRL, EOMI, accommodation nl, no face palsy, no dysarthria Psychiatric: A+Ox3, euthymic affect Results & Data Vital Signs (Past 12 Hours) Vital Signs Temp Pulse Pulse Resp BP BP BP 06/05/19 08:00 76 06/05/19 07:46 154/72 H 06/05/19 07:34 36.5 C 68 16 148/65 H 167/78 H 06/05/19 03:42 37.1 C 66 18 103/61 06/04/19 23:52 36.7 C 66 20 103/52 L Pulse Ox 06/05/19 08:00 06/05/19 07:46 06/05/19 07:34 97 06/05/19 03:42 90 06/04/19 23:52 91 Laboratory Results Short CBC 06/05/19 Range/Units 01:31 EST WBC 21.41 H (4.8-10.8) K/uL Hgb 9.9 L (12.0-16.0) g/dL Hct 27.4 L (37-47) % Plt Count 221 (130-400) K/uL BMP 06/05/19 01:31 EST Sodium 130 L Potassium 4.2 Chloride 101 Carbon Dioxide 22 BUN 25 H Creatinine 1.22 H Glucose 102 H Calcium 7.6 L (1) Pneumonia Laterality: unspecified laterality Lung location: unspecified part of lung Pneumonia type: due to unspecified organism Qualified Code(s): J18.9 - Pneumonia, unspecified organism
[2019-06-05 12:23] LABS: BUN Creatinine Ratio 18.1 (10-20); Calcium 8.3 mg/dl (8.5-10.1); Creatinine Clr Calc Pharmacy 29.3 ml/min; Est GFR (African American) 51.2; Est GFR (Non-African American) 44.1; Potassium 4.3 mmol/L (3.5-5.1)
[2019-06-05] MEDS ORDERED: guaiFENesin SUGAR FREE 100 MG/5 ML UDC PO PRN (18:00)
[2019-06-05] MEDS ORDERED: VANCOMYCIN CONSULT ACTIVE PRN (18:04)
[2019-06-05] MEDS ORDERED: VANCOMYCIN HCL 1,250 MG in SODIUM CHLORIDE 0.9% 250 ML IV ONE (18:15)
[2019-06-05 18:39] LABS: BUN Creatinine Ratio 17.9 (10-20); Calcium 8.4 mg/dl (8.5-10.1); Creatinine Clr Calc Pharmacy 33.1 ml/min; Est GFR (African American) 59.4; Est GFR (Non-African American) 51.2; Potassium 4.1 mmol/L (3.5-5.1)
[2019-06-05] MEDS ORDERED: Nursing to Pharmacy Communication ONE (19:11)
[2019-06-05] MEDS: ATORVASTATIN 40 MG TAB PO SCH (20:14)
[2019-06-05] MEDS: LORazepam 0.5 MG TAB PO PRN (20:15)
[2019-06-05] MEDS: ACETAMINOPHEN 325 MG TAB PO PRN (20:16)
[2019-06-05] MEDS ORDERED: DOXYCYCLINE HYCLATE 100 MG CAP PO SCH (21:00)
[2019-06-05] MEDS: HEPARIN SODIUM/DEXTROSE 25,000 UNITS/500 ML BAG IV SCH (23:00)
[2019-06-06 00:03] LABS: Legionella pneumoph IgM, IFA <1:256 TITER
[2019-06-06 01:01] LABS: BUN Creatinine Ratio 19.9 (10-20); Calcium 7.9 mg/dl (8.5-10.1); Creatinine Clr Calc Pharmacy 34.2 ml/min; Est GFR (African American) 61.6; Est GFR (Non-African American) 53.2; Potassium 3.9 mmol/L (3.5-5.1)
[2019-06-06 05:17] LABS: Partial Thromboplastin Ratio 1.8
[2019-06-06 05:19] LABS: Partial Thromboplastin Time 47.9 Seconds (21.0-31.0)
[2019-06-06] MEDS: LOSARTAN POTASSIUM 25 MG TAB PO SCH (07:49)
[2019-06-06] MEDS: carvediloL 25 MG TAB PO SCH (07:49)
[2019-06-06] MEDS: CALCIUM CARBONATE 1250MG TAB PO SCH (07:50)
[2019-06-06] MEDS: CHOLECALCIFEROL 1,000 UNITS TAB PO SCH (07:50)
[2019-06-06] MEDS: LACTOBACILLUS ACIDOPHILUS (FLORANEX) TAB PO SCH (07:50)
[2019-06-06] MEDS: ASPIRIN 81 MG ECTAB PO SCH (07:50)
[2019-06-06] MEDS: OMEGA-3 (PURIFIED FISH OIL) 1 GM CAP PO SCH (07:50)
[2019-06-06] MEDS: MULTIVITAMIN TAB PO SCH (07:50)
[2019-06-06] MEDS ORDERED: cefUROXime axetil 500 MG TAB PO SCH (09:00)
--- NOTE | 2019-06-06 09:20 | Pharmacy Report ---
Pharmacy Abx Dose Short Note - Date of Service June 06, 2019 - Assessment & Plan Assessment Sputum culture growing staph aureus. MRSA nasal swab is negative. Making MRSA pna highly unlikely. Will wait to de-escalate/dc vancomycin until staph aureus sensitivities result. Pt population p'kinetics: t1/2=21, ke=[id number]. Vancomycin: 1250mg (23mg/kg) IV X1 then vancomycin 750mg (14mg/kg) q24 goal trough for pulm source: 15-20mcg/mL trough ordered for 06/08 @1730, this is not reflective of [facility] will continue to follow and will adjust dose/frequency as necessary. Thank you.
[2019-06-06] MEDS ORDERED: APIXABAN 2.5 MG TAB PO SCH (12:00)
--- NOTE | 2019-06-06 12:05 | Cardiology Progress Note ---
Date of Service June 06, 2019 Assessment & Plan (1) New onset atrial fibrillation: (2) Nonischemic cardiomyopathy: (3) Hypertension: (4) Mitral regurgitation: (5) Pneumonia: Discontinue intravenous heparin. Patient will receive Eliquis 2.5 mg x 1 now then continue twice daily. Reduced dose indicated due to age greater than 81 and weight <60kg. Continue carvedilol at reduced dose, 12.5 mg twice daily as well as losartan 25 mg twice daily. Recommend resume amlodipine at reduced dose, 2.5 mg daily at time of discharge. Close cardiology follow-up in 1 to 2 weeks. All questions answered patient satisfaction. Cardiology will sign off at this time. Please call with questions per patient has a long history of labile hypertension. Subjective Patient seen and examined at the bedside. Denies palpitations or chest discomfort. Respiratory status improved. No signs/symptoms of GI/ blood loss. IV heparin infusing. Telemetry demonstrates atrial fibrillation with controlled ventricular response. Asymptomatic slow ventricular response noted during periods of sleep. Patient offers no complaints at this time. Amlodipine remains on hold. Losartan and carvedilol doses reduced during hospitalization. Blood pressure remains labile. Review of Systems Review of Systems: All systems reviewed & are unremarkable except as noted in HPI & below Physical Exam Physical Exam: General: NAD, AAO x3, well nourished. HEENT: Normocephalic. Atraumatic. Conjunctiva pink, no scleral icterus. Neck: No carotid bruits, the carotid upstrokes are brisk. No JVD. No HJR Heart: Irregular rhythm, normal S1- S2. 2/6 holosystolic murmur heard best at the apex. PMI is not displaced. No RV heave. Lungs: Crackles at the bases bilaterally. Abdomen: Normal bowel sounds. Soft. Nontender. No masses or organomegaly. No abdominal bruits. Extremities: No clubbing, cyanosis, or edema. Pulses: radial=2/4, Dorsalis pedis =2/4, posterior tibial=2/4. Neuro: Cranial nerves grossly intact. No focal motor deficit. Results & Data Vital Signs (Past 12 Hours) Vital Signs Temp Pulse Pulse Resp BP Pulse Ox 06/06/19 11:46 36.4 C L 72 18 150/72 H 97 06/06/19 08:31 59 L 06/06/19 07:26 36.7 C 69 18 144/78 H 94 06/06/19 04:25 36.7 C 71 20 120/53 L 91 (1) Pneumonia Laterality: unspecified laterality Lung location: unspecified part of lung Pneumonia type: due to unspecified organism Qualified Code(s): J18.9 - Pneumonia, unspecified organism
[2019-06-06 15:15] VITALS: PULSE 79; TEMP 98.6; O2SAT 94
--- NOTE | 2019-06-06 17:00 | Discharge Summary ---
Date of Service June 06, 2019 Admission HPI Per Admitting Provider Pt is 88 y/o F with PMH HTN, dyslipidemia, right breast CA S/P lumpectomy and radiation, nonischemic cardiomyopathy, chronic systolic CHF, CKD III, anxiety, renal artery stenosis, carotid artery disease presented to ER with complaint of cough. Patient reports has had cough and congestion for the past 2 to 3 weeks. Seen a PCP last week and had CXR on 05/26/2019 which did not show any consolidation. Patient reports cough feels worse and is productive of yellow/brown sputum. This week has been having chills and had sweats couple days ago. Did not take her temperature at home. States feels slightly short of breath. Yesterday was seen in urgent care and was started on doxycycline and prednisone patient took first dose this morning. Reports yesterday vomited mucus once after coughing. Reports some upper abdominal and lower chest discomfort after coughing only. States this morning was not feeling well overall and felt a little lightheaded and presented to ER. Did have flu vaccine in 04/2019. Denies ill contacts. Denies diarrhea, JEWELL, syncope, vision changes, neck pain, other CP, orthopnea, palpitations, hemoptysis, sore throat, choking, otalgia, other abdominal pain, paresthesias, extremity weakness, extremity edema, rashes, urinary symptoms. Admission Exam Per Admitting Provider General: no distress, WDWN Head: normocephalic, atraumatic Eyes: PERRL, EOM's intact, conjunctiva non-injected, anicteric ENT: normal inspection external ears, nose, mucous membranes moist Neck: supple, trachea midline Lungs: clear, no respiratory distress, no wheezing/rhonchi/rales CV: RRR, systolic murmur, no pretibial edema Abd: normal BS, soft, non-tender Ext: no cyanosis, no calf tenderness Neuro: A&O x 3, no focal deficits noted, normal affect Skin: warm, dry Principal Diagnosis Community Acquired Pneumonia (Staph Pneumonia) New onset Atrial Fibrillation Hyponatremia Hypertension Discharge Exam Constitutional well developed; no acute distress Eyes PERRL, conjunctivae normal, anicteric sclerae ENMT external ear and nose normal, oropharynx normal Neck trachea midline, no thyromegaly Respiratory normal respiratory effort, lungs clear to auscultation Cardiovascular Rate/Rhythm: + irregularly irregular Heart Sounds: no murmur Vessels: no JVD Extremities: no pedal edema S1 S2 Gastrointestinal (Abdomen) normal bowel sounds, soft, nontender, no hepatosplenomegaly Musculoskeletal no cyanosis or clubbing, extremities motor strength 5/5 Neurologic PERRL, EOMI, accommodation nl, no face palsy, no dysarthria Psychiatric A+Ox3, euthymic affect Discharge Data Allergies Allergy/AdvReac Type Severity Reaction Status Date / Time Sulfa (Sulfonamide Allergy Intermediate rash Verified 06/02/19 11:53 Antibiotics) codeine AdvReac Intermediate N/V Verified 06/02/19 11:53 Consultations 06/02/19 12:01 ED Decision to Admit Stat 06/02/19 14:36 Consult Case Management - Discharge Planning Routine 06/04/19 18:38 Consult Cardiology Routine 06/05/19 07:50 Consult Case Management - Discharge Planning Routine Ordered Studies 06/02/19 10:26 CT chest w con Stat 1. Mild multifocal airspace opacities within the right upper lobe with tree-in-bud nodules. The findings suggest a mild infectious process. A follow-up chest CT in 3 months to ensure resolution is recommended. 2. Moderate cardiomegaly and coronary artery calcification. 2D Echo The rhythm is atrial fibrillation. Left ventricular systolic function is mildly reduced. Ejection Fraction = 45-50%. The left atrium is moderately dilated. Aortic valve sclerosis moderate, without significant aortic valvular stenosis. There is moderate to severe mitral regurgitation. Dilated inferior vena cava with reduced collapsibility with sniff indicates an elevated right atrial pressure of 15 mmHg Hospital Course (1) New onset atrial fibrillation: New onset on 06/04/19 Currently still in A. fib CHADVASC is 5 Was initially started on heparin drip Will be discharged on eliquis 2.5mg bid Was evaluated by cardiology 2D echo as reported above. No significant change from prior Echo in 2017 Rate controlled Continue carvedilol at new dose of 12.5mg bid (2) Staphylococcal pneumonia: (3) Pneumonia: CT chest showed mild multifocal airspace opacities within the right upper lobe with tree-in-bud nodules. The findings suggest a mild infectious process. Moderate cardiomegaly and coronary artery calcification. Has remained afebrile Has leukocytosis yesterday. WBC peaked at 22 yesterday. Blood cultures negative Negative procalcitonin and flu on admission Legionella negative Sputum culture had few staph aureus. Sensitivities still pending. MRSA swab is negative Significant clinical improvement Being discharged on doxycycline to complete antibiotic therapy (4) Acute hyponatremia: On admission, Corrected sodium 127 for glucose of 141. Baseline Na: 136. On admission, Serum osmolality low 269. Urine osmolality 219. Urine Na 27 Patient is euvolemic on exam. Hypotonic hyponatremia Likely from polydipsia (she acknowledged liberal fluid intake) + diuretic Held home dose of spironolactone Managed with fluid restriction of 2000cc/day Na today is 134 Discharge without spironolactone Continue fluid restriction at home of not more than 2000cc/day (5) Hypertension: Has symptomatic hypotension after taking her home BP meds while inpatient All antihypertensives were initially held. Carvedilol and losartan were resumed at half the doses. Patient does have occasional swings in BP from SBP in 100s-110s to upto 150. Will discharge on current regimen of carvedilol 12.5mg bid and losartan 25mg bid Amlodipine was discontinued for now Follow up PCP and cardiology for continued outpatient management (6) Nonischemic cardiomyopathy: Echo 2017: EF: 45-50%, grade II diastolic dysfunction, severe mitral regurgitation, severe left atrial enlargement Stopped spironolactone as above for now Currently euvolemic (7) CKD (chronic kidney disease), stage III: Cr stable at baseline. Baseline 1.1-1.2 Monitor renal functions Avoid nephrotoxic agents when possible (8) Dyslipidemia: Continue statin (9) Anxiety: Continue Ativan prn Total Time Total Time Spent Total Time Spent (In Minutes): 40 Total Time Includes: Examination of the Patient, Discharge Planning, Medication Reconciliation and Other (Communicating plans with patient and son) Discharge Plan Discharge Items Patient Disposition: Home - Home Health Services Reason For Visit: PNEUMONIA/HYPONATREMIA Discharge Diagnosis: Community Acquired Pneumonia New onset Atrial Fibrillation Hyponatremia Hypertension Condition on Discharge: Good Activity: Resume your previous activity Non-emergency contact: Primary Care Provider and Wire Hanger Call non-emergency contact if: you have any medication questions and your symptoms worsen Follow-up/Referrals: Lizeth Tariq, [Primary Care Provider] - Diet: Heart Healthy Fluids: 2000ml (8 cups) Addtl Attending Provider Instructions: Ms Weinstein. You came to the hospital complaining of cough. You were evaluated and found to have pneumonia due to staph. aureus. You were started on antibiotics. During your hospital stay, you were also found to have developed atrial fibrillation, an abnormal heart rhythm. This puts you at risk of developing blood clot and a stroke. You were started on blood thinner. You were also evaluated by a Wire Hanger. Echocardiogram done was similar to your previous ones. You had an episode of significant low blood pressure with dizziness even while you are on your usual home BP medications. Your blood pressure medications were adjusted. When you presented to the hospital, your sodium level was quite low. This was managed by suspending your home diuretic and restricting your fluid intake to not more than 2000cc in a day. It is very important you follow up with your Wire Hanger and Primary Doctor within the next 1-2 weeks for continued management. The following medication adjustments were made as discussed above: -STOP TAKING AMLODIPINE, SPIRONOLACTONE -The dose of Tab Carvedilol was reduced from 25mg to 12.5mg twice a day -The dose of Tab Losartan was reduced from 50mg to 25mg twice a day -Please take Tab doxycycline 100mg twice a day for another 4 days to complete antibiotic treatment. Do not take this medication at the same time with the multivitamins. -Please take the blood thinner Eliquis 2.5mg twice a day -Use the guaifenasin cough syrup as needed for cough. It was a pleasure taking care of you. Pending Studies at Discharge: Yes Studies:: Final sputum culture sensitivities Stand-Alone Forms: My [facility], Smoking Cessation Medications and DC Order Prescriptions: New Eliquis 2.5 mg Tablet 2.5 mg PO BID 30 Days Qty: 60 RF: 0 carvedilol 25 mg Tablet 12.5 mg PO BID 30 Days Qty: 30 RF: 0 guaifenesin 100 mg/5 mL Liquid 100 mg PO Q6H PRN (Reason: cough) 7 Days Qty: 500 RF: 0 losartan 25 mg Tablet 25 mg PO BID 30 Days Qty: 60 RF: 0 doxycycline monohydrate 100 mg capsule 100 mg PO BID 4 Days Qty: 8 RF: 0 Continued multivitamin [Multiple Vitamins] Tablet 1 tab PO QAM RF: 0 atorvastatin 40 mg tablet 40 mg PO HS RF: 0 prednisolone acetate 1 % Drops,Suspension 1 drp OPR DAILY PRN (Reason: .) RF: 0 lorazepam 0.5 mg tablet 0.5 mg PO HS RF: 0 calcium carbonate [Calcium 500] 500 mg calcium (1,250 mg) Tablet 500 mg PO QAM RF: 0 methylcellulose (laxative) 500 mg Tablet 500 mg PO Q2D RF: 0 cholecalciferol (vitamin D3) [Vitamin D3] 1,000 unit Capsule 1,000 unit PO QAM RF: 0 PreserVision AREDS-2 [id number] [id number] Capsule 1 tab PO BID RF: 0 [place]-3 350 mg-235 mg- 90 mg-597 mg Capsule,Delayed Release(Dr/Ec) 1 cap PO BID RF: 0 Probiotic Acidophilus Biobeads 12.9 mg (2 billion cell) Tablet,Delayed Release (Dr/Ec) 1 tab PO QAM RF: 0 Discontinued losartan 50 mg tablet 50 mg PO BID RF: 0 carvedilol 25 mg tablet 25 mg PO BID RF: 0 doxycycline hyclate 100 mg capsule 100 mg PO BID RF: 0 prednisone 20 mg tablet 40 mg PO QAM RF: 0 amlodipine 5 mg tablet 5 mg PO DAILY@1200 RF: 0 amlodipine 5 mg tablet 2.5 mg PO HS RF: 0 aspirin 81 mg Tablet,Delayed Release (Dr/Ec) 81 mg PO QAM RF: 0 spironolactone 25 mg tablet 12.5 mg PO QAM RF: 0 Discharge Orders: Discharge Order (Routine); Ordered 06/06/19 Ordered By: oRsa Quezada Admission Data Admit Date/Time: 06/02/19 12:51 Attending Provider: Rosa Quezada I. Admit Provider: Shaquille Hammond Primary Care Provider: Lizeth Tariq Other Providers: Shaquille Hammond ; Bronson Doherty Other Interventions: Discharge Summary Assessment (RN) Last Done: 06/06/19 17:00 DC Date/Time DO NOT enter until pt leaves facility: 06/06/19 18:00
[2019-06-06 17:02] VITALS: BP 150/72
[2019-06-06] MEDS ORDERED: VANCOMYCIN HCL 750 MG in SODIUM CHLORIDE 0.9% 250 ML IV SCH (18:00)
[2019-06-08] MEDS ORDERED: VANCOMYCIN TROUGH ONE (17:30)
--- NOTE | 2019-06-14 06:58 | Coding Query ---
CODING QUERY To promote full compliance with coding requirements relating to patient care, provider participation is requested in all cases of locomotive operator uncertainty. Please assist us with the question(s) below: Coding Question(s): Seeking clarification on type of Pneumonia treated. Discharge Summary states staph pneumonia and MRSA negative nasal swab. Please document, if known or suspected, the type of pneumonia that was treated during this Inpatient stay. Thanks for your help! Herson Allison [facility] Physician's Response(s): Patient was treated for MSSA pneumonia. Confirmed on sputum culture Principal Diagnosis: "that condition established after study, to be chiefly responsible for occasioning the admission of the patient to the hospital for care." Co-Existing Principal Diagnosis: "when two or more diagnoses equally meet the criteria for principal diagnosis as determined by the circumstances of admission, diagnostic work up, and/or therapy provided, and the Alphabetic Index, Tabular List, or another coding guideline does not provide sequencing direction, any one of the diagnoses may be sequenced first." "When the physician has documented what appears to be a current diagnosis in the body of the record, but has not included the diagnosis in the final diagnostic statement, the physician should be asked whether the diagnosis should be added." (Source [facility]oding [facility] 2 QTR90. p3-4) SHAHEED
== END 2019-06-06 18:00 | disposition home health service (06) | DRG 178 ==
LOC: ED 09:40 → 2N 12:51 → SUATTDRO 12:51 → 2N 13:57